=== PATIENT | female | born 1940 | race Caucasian/White ===

== ENCOUNTER 2018-08-02 17:48 | Inpatient (IN) | payer MEDICARE ==
[~2018-08-02] VITALS: Ht 167.6 cm; Wt 49.0 kg
[2018-08-02 18:36] VITALS: BP 137/63
[2018-08-02] MEDS ORDERED: MAG HYDROX/AL HYDROX/SIMETH 30 ML ORAL.SUSP PO PRN (19:30)
[2018-08-02] MEDS ORDERED: MAGNESIUM HYDROXIDE 2,400 MG/30 ML ORAL.SUSP. PO PRN (19:30)
[2018-08-02] MEDS ORDERED: METHYL SALICYLATE/MENTHOL TOPICAL OINTMENT 29GM TUBE. TP PRN (19:30)
--- NOTE | 2018-08-02 19:35 | NUR ---
Admission Note with Justification for Admission to [facility] Patient admitted to [facility] for protective oversight for emergency stabilization of acute psychiatric crisis. Pt admitted from: Hospital ER Mode of arrival: EMS Accompanied By: EMS Precipitating behaviors that initiated intake and admission: agitation, suicidal ideation, hitting self, crying. Description of failure of out patient attempts at stabilization in previous setting list behavior and medication trials: Attempt to redirect pt. Behaviors and assessment findings upon admission: Pt alert but oriented to self only. Pt does not know where she is, what year it is, why she is here, etc. Pt states her date when asked what year it is. Pt calm and cooperative with assessment. Pt pleasant, interactive, and social. Pt's skin is intact; has bruises on arms from recent lab draws. Surgical scars: lumbar, abdomen, left knee. Pt admits to having several thoughts of self-harm in the past, but denies and SI/HI at this moment. Pt stated "I don't want to hurt myself right now. I want to be here with you guys." Plan: Admit for protective oversight for adjustment and stabilization of medications, behaviors and mood. Intense treatment regimen including groups, medication adjustments, therapy, consistent regimen for ADL's, self care, and sleep hygiene. Daily monitoring by Inpatient staff, Psychiatry, and Medical Physician.
[2018-08-02 20:23] LABS: BASO % 1 % (0-3); EOS # 0.2 x10^3/uL (0.0-0.7); EOS % 2 % (0-3); HEMATOCRIT 30.8 % (36.0-47.0); HEMOGLOBIN 10.4 g/dL (12.0-15.5); LYMPH # 1.2 x10^3/uL (1.0-4.8); LYMPH % 18 % (24-48); MEAN CORPUSCULAR HEMOGLOBIN 32 pg (25-35); MEAN CORPUSCULAR HGB CONC 34 g/dL (31-37); MEAN CORPUSCULAR VOLUME 95 fL (79-100); MONO # 0.5 x10^3/uL (0.0-1.1); MONO % 7 % (0-9); NEUT # 4.8 x10^3uL (1.8-7.7); NEUT % 72 % (31-73); PLATELET COUNT 200 x10^3/uL (140-400); RED BLOOD COUNT 3.24 x10^6/uL (3.50-5.40); RED CELL DISTRIBUTION WIDTH 13.7 % (11.5-14.5); WHITE BLOOD COUNT 6.7 x10^3/uL (4.0-11.0)
[2018-08-02] MEDS ORDERED: FURO20TA3 PO (20:43)
[2018-08-02] MEDS ORDERED: QUET25TA5 PO (20:43)
[2018-08-02] MEDS ORDERED: CARV25TA2 PO (20:43)
[2018-08-02] MEDS ORDERED: MIRT15TA3 PO (20:43)
[2018-08-02] MEDS ORDERED: METF500T9 PO (20:43)
[2018-08-02] MEDS ORDERED: CLOP75TA PO (20:43)
[2018-08-02] MEDS ORDERED: ATOR40TA59 PO (20:43)
[2018-08-02] MEDS ORDERED: INSU100I13 SQ (20:43)
[2018-08-02] MEDS ORDERED: TRAZ-120 PO (20:43)
[2018-08-02] MEDS ORDERED: DONE10TA7 PO (20:43)
[2018-08-02] MEDS ORDERED: ASPI-612 PO (20:43)
[2018-08-02 20:49] LABS: ALBUMIN 3.5 g/dL (3.4-5.0); ALBUMIN/GLOBULIN RATIO 1.1 (1.0-1.7); CALCIUM 8.5 mg/dL (8.5-10.1); CREATININE 1.1 mg/dL (0.6-1.0); POTASSIUM 4.1 mmol/L (3.5-5.1); TOTAL BILIRUBIN 0.2 mg/dL (0.2-1.0); TOTAL PROTEIN 6.7 g/dL (6.4-8.2)
[2018-08-02] MEDS: INSULIN GLARGINE 300 UNITS/3 ML INSULN.PEN. SQ SCH (21:00)
[2018-08-02] MEDS ORDERED: traZODone 50 MG TABLET. PO SCH (21:00)
[2018-08-02] MEDS: MIRTAZAPINE 15 MG TABLET PO SCH (21:19)
[2018-08-02] MEDS: QUEtiapine 25 MG TABLET. PO SCH (21:19)
--- NOTE | 2018-08-02 22:39 | PDOC ---
Exam Note: Jc Note: Please also refer to the separate dictated note~for this date of service dictated separately. Discussed the patient with Nursing staff reviewed the chart.~Reviewed interim history and current functioning. Reviewed vital signs,~ Labs/ Radiology~and current medications noted below. Continue current treatment with the changes noted in the dictated addendum note Assessment: Vital Signs: Vital Signs Date Time Temp Pulse Resp B/P (MAP) Pulse Ox O2 Delivery O2 Flow Rate FiO2 08/02/18 18:36 97.5 64 20 137/63 (87) 100 Room Air Labs: Laboratory Tests Test 08/02/18 19:09 08/02/18 20:15 Glucose (Fingerstick) 197 mg/dL (70-99) H White Blood Count 6.7 x10^3/uL (4.0-11.0) Red Blood Count 3.24 x10^6/uL (3.50-5.40) L Hemoglobin 10.4 g/dL (12.0-15.5) L Hematocrit 30.8 % (36.0-47.0) L Mean Corpuscular Volume 95 fL (79-100) Mean Corpuscular Hemoglobin 32 pg (25-35) Mean Corpuscular Hemoglobin Concent 34 g/dL (31-37) Red Cell Distribution Width 13.7 % (11.5-14.5) Platelet Count 200 x10^3/uL (140-400) Neutrophils (%) (Auto) 72 % (31-73) Lymphocytes (%) (Auto) 18 % (24-48) L Monocytes (%) (Auto) 7 % (0-9) Eosinophils (%) (Auto) 2 % (0-3) Basophils (%) (Auto) 1 % (0-3) Neutrophils # (Auto) 4.8 x10^3uL (1.8-7.7) Lymphocytes # (Auto) 1.2 x10^3/uL (1.0-4.8) Monocytes # (Auto) 0.5 x10^3/uL (0.0-1.1) Eosinophils # (Auto) 0.2 x10^3/uL (0.0-0.7) Basophils # (Auto) 0.0 x10^3/uL (0.0-0.2) Sodium Level 140 mmol/L (136-145) Potassium Level 4.1 mmol/L (3.5-5.1) Chloride Level 104 mmol/L (98-107) Carbon Dioxide Level 30 mmol/L (21-32) Anion Gap 6 (6-14) Blood Urea Nitrogen 21 mg/dL (7-20) H Creatinine 1.1 mg/dL (0.6-1.0) H Estimated GFR (Cockcroft-Gault) 48.0 BUN/Creatinine Ratio 19 (6-20) Glucose Level 269 mg/dL (70-99) H Calcium Level 8.5 mg/dL (8.5-10.1) Total Bilirubin 0.2 mg/dL (0.2-1.0) Aspartate Amino Transferase (AST) 78 U/L (15-37) H Alanine Aminotransferase (ALT) 78 U/L (14-59) H Alkaline Phosphatase 104 U/L (46-116) Total Protein 6.7 g/dL (6.4-8.2) Albumin 3.5 g/dL (3.4-5.0) Albumin/Globulin Ratio 1.1 (1.0-1.7) Current Medications: Meds: Current Medications Acetaminophen (Tylenol) 650 mg PRN Q6HRS PRN PO PAIN / TEMP; Start 08/02/18 at 19:30 Multi-Ingredient Ointment (Analgesic [place]) 1 ashlyn PRN QID PRN TP MUSCLE PAIN; Start 08/02/18 at 19:30 Al Hydroxide/Mg Hydroxide (Mylanta Plus Xs) 15 ml PRN AFTMEALHC PRN PO DYSPEPSIA; Start 08/02/18 at 19:30 Magnesium Hydroxide (Milk Of Magnesia) 2,400 mg PRN QHS PRN PO CONSTIPATION; Start 08/02/18 at 19:30 Donepezil HCl (Aricept) 10 mg DAILY PO ; Start 08/03/18 at 09:00 Mirtazapine (Remeron) 15 mg QHS PO Last administered on 08/02/18at 21:19; Start 08/02/18 at 21:00 Quetiapine Fumarate (SEROquel) 25 mg TID PO Last administered on 08/02/18at 21: 19; Start 08/02/18 at 21:00 Trazodone HCl (Desyrel) 12.5 mg TID PO Last administered on 08/02/18at 21:19; Start 08/02/18 at 21:00 Clopidogrel Bisulfate (Plavix) 75 mg DAILY PO ; Start 08/03/18 at 09:00 Furosemide (Lasix) 20 mg DAILY PO ; Start 08/03/18 at 09:00 Insulin Glargine (Lantus) 5 units QHS SQ ; Start 08/02/18 at 21:00 Aspirin (Aspirin Enteric Coated) 81 mg DAILY PO ; Start 08/03/18 at 09:00 Atorvastatin Calcium (Lipitor) 40 mg DAILY PO ; Start 08/03/18 at 09:00 Carvedilol (Coreg) 12.5 mg BIDWMEALS PO ; Start 08/03/18 at 08:00 Metformin HCl (Glucophage) 500 mg BIDWMEALS PO ; Start 08/03/18 at 08:00 Active Scripts Active Reported Trazodone Hcl 50 Mg Tablet 12.5 Mg PO TID Seroquel (Quetiapine Fumarate) 25 Mg Tablet 25 Mg PO TID Metformin Hcl Er (Metformin Hcl) 500 Mg Tab.er.24h 500 Mg PO BID Furosemide 20 Mg Tablet 20 Mg PO DAILY Donepezil Hcl 10 Mg Tablet 10 Mg PO DAILY Clopidogrel (Clopidogrel Bisulfate) 75 Mg Tablet 75 Mg PO DAILY Carvedilol 25 Mg Tablet 12.5 Mg PO BIDWMEALS Atorvastatin Calcium 40 Mg Tablet 40 Mg PO DAILY Mirtazapine 15 Mg Tablet 15 Mg PO QHS Lantus Solostar (Insulin Glargine,Hum.rec.anlog) 100 Unit/1 Ml Insuln.pen 5 Units SQ QHS Aspirin Ec (Aspirin) 81 Mg Tablet. 81 Mg PO DAILY I have reviewed the current psychotropics carefully including drug interactions. Risk benefit ratio favors no change other than as noted in my dictated progress note. JAMES MONTANEZ MD Aug 02, 2018 22:39
[2018-08-03 05:56] VITALS: BP 155/83
[2018-08-03 07:13] LABS: BACTERIA,URINE MANY /HPF (0-FEW); BILIRUBIN,URINE NEG (NEG); CLARITY,URINE CLEAR; COLOR,URINE YELLOW; GLUCOSE,URINE 250 mg/dL (NEG); NITRITE,URINE NEG (NEG); RBC,URINE 0 /HPF (0-2); UROBILINOGEN,URINE 0.2 mg/dL (0.2 mg/dL)
[2018-08-03 07:14] LABS: SQUAMOUS EPITHELIAL CELL,UR FEW /LPF
[2018-08-03] MEDS: metFORMIN 500 MG TABLET PO SCH ×2 (07:39→17:51)
[2018-08-03] MEDS: QUEtiapine 25 MG TABLET. PO SCH ×3 (07:39→20:00)
[2018-08-03] MEDS: ASPIRIN ENTERIC COATED 81 MG TABLET.DR. PO SCH (07:39)
[2018-08-03] MEDS: ATORVASTATIN CALCIUM 20 MG TABLET PO SCH (07:40)
[2018-08-03] MEDS: DONEPEZIL HCL 10 MG TABLET PO SCH (07:40)
[2018-08-03] MEDS: CLOPIDOGREL BISULFATE 75 MG TABLET PO SCH (07:40)
[2018-08-03] MEDS: FUROSEMIDE 20 MG TABLET PO SCH (07:40)
[2018-08-03] MEDS: CARVEDILOL 12.5 MG TABLET PO SCH ×2 (07:40→17:52)
--- NOTE | 2018-08-03 11:00 | HP ---
ADMIT DATE: 08/02/2018 PSYCHIATRIC ADMISSION HISTORY AND EVALUATION This late entry of 08/02/2018 covers elements not covered in my initial note. SUMMARY OF PROGRESS: I met with the patient evening of 08/02/2018, about 15-20 minutes after she arrived in the unit. Discussed with the nursing staff, reviewed the chart. Previously discussed the patient with Ruth Covarrubias, merchandise coordinator and reviewed information from [facility], where she was hospitalized from home and medically stabilized, but remained confused with active suicidal ideation voiced on 08/02/2017. She was agitated, paranoid, scared that someone was after her. She was hitting herself in the head and was having splitting behavior with the staff. Behaviors were deemed unmanageable, unable to return home, potentially dangerous, had failed psychiatric interventions at the [facility], referred for inpatient psychiatric stabilization. CHIEF COMPLAINT: "I just came here. The year is 1939. No, I don't know the name of the president. Yes, I am hungry." The patient responded to specific questions by me as I met with her in her room shortly after she arrived in the unit evening of 08/02/2018. HISTORY OF PRESENT ILLNESS: The patient has a history of dementia, Alzheimer's vascular type and prior history of probable bipolar disorder with polysubstance abuse, alcohol abuse, opioid abuse in addition to diabetes mellitus, hypertension, CHF, status post TIA and CVAs. She has been increasingly agitated as above, potentially dangerous to herself, depressed, psychotic with sleep and appetite changes, referred for inpatient psychiatric stabilization. PAST PSYCHIATRIC HISTORY: As noted above. She was an inpatient at Psychiatry 03/01/2018 to 03/05/2018. PAST MEDICAL HISTORY: As noted above. Positive for diabetes mellitus, hypertension, status post CVA, alcohol, polysubstance abuse and CHF. Accu-Cheks a.c. and at bedtime. DIET: Diabetic cardiac regular diet, takes medications whole. CODE STATUS: DNR. ALLERGIES: PENICILLIN. FAMILY HISTORY: Noncontributory. She ambulates ad [place]. CURRENT PSYCHOTROPICS: Remeron 15 mg at bedtime, Aricept 10 mg a day, Seroquel 25 mg t.i.d., and trazodone 12.5 mg t.i.d. p.r.n. anxiety. SOCIAL HISTORY: Alcohol, polysubstance abuse history noted above. No physical, sexual or elder abuse history. She is not known to be a perpetrator. The patient had been living at home with her daughter and the daughter is unable to manage her any longer at home, and thus took her to and then the referral to us. MENTAL STATUS EXAMINATION: The patient was seen individually in her room, evening of 08/02/2018. She is oriented to herself, quite pleasant, hyperverbal. Insight, judgment, recent and remote memory, attention, concentration, fund of knowledge poor, consistent with her diagnosis. REACTION TO HOSPITALIZATION: The patient accepting of it. ASSETS: Supportive family. MENTAL STATUS EXAM: The patient is oriented to herself. Insight, judgment, recent and remote memory, attention, concentration, fund of knowledge poor, consistent with her diagnosis. She is quite paranoid, suspicious, hyperverbal at times. No active suicidal ideation. LABORATORY DATA: Reviewed. IMPRESSION: Major neurocognitive disorder, Alzheimer, vascular with delusion, depression, behavioral disturbance; anxiety disorder, unspecified; impulse control disorder, unspecified; history of bipolar 1 disorder, mixed with psychotic features, alcohol and polysubstance abuse by history. PLAN: Admit to geropsychiat[facility] unit at [facility]. I will see the patient daily individually from a psychiatric standpoint, medical followup with Dr. Joe. We will get past records from Psychiatry. Continue current psychotropics, observe baseline, then adjust as clinically indicated. Estimated length of stay 10-12 days. DISPOSITION PLANS: She will probably need placement to be facilitated by social service staff with the family. MAN Vicky MONTANEZ MD DR: SHAWNA/winsome JOB#: [id number] / [id number]
[2018-08-03 14:26] LABS: THYROID STIM HORMONE (TSH) 1.144 uIU/mL (0.358-3.740)
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
[2018-08-03] MEDS: ACETAMINOPHEN 325 MG TABLET PO PRN (15:18)
--- NOTE | 2018-08-03 15:58 | NUR ---
Behavior Intervention Response and Plan: BIRP Note: Behavior: Assumed Care of patient, patient located in Day Room at shift change. Patient exhibited the following behavior Calm, Disorganized, Compliant. Brief assessment on rounds of vital signs, medication needs, lab studies, and pain. Treatment plan problems . Intervention: Patient assessed and the following interventions initiated safety checks 15 Minute Checks Cognitive Assessment , Head to toe Assessment , Medications. Response: After interactions and interventions patient responded in the following manner, Calm , Disorganized ,Cooperative. Continue to assess behaviors and condition will continue to monitor throughout the shift as needed. Patient educated on ADL's, and hand hygiene. Plan: Continue to monitor Master Treatment Plan for patient's progress toward short term goals of Improved Mood, Decreased Anxiety, assisted goals to return to previous living setting vs placement. Continue to assess patient for changes in above assessment. Monitor for medication needs, pain, and safety concerns. Hourly rounding performed to ensure safe environment.
[2018-08-03 16:02] VITALS: BP 117/69
[2018-08-03 18:08] LABS: THYROXINE 4.5 ug/dL (4.5-12.0)
[2018-08-03] MEDS: MIRTAZAPINE 15 MG TABLET PO SCH (20:00)
[2018-08-03] MEDS: DOCUSATE SODIUM 100 MG CAPSULE PO SCH (20:01)
[2018-08-03] MEDS: INSULIN GLARGINE 300 UNITS/3 ML INSULN.PEN. SQ SCH (20:02)
--- NOTE | 2018-08-03 22:30 | NUR ---
Nursing note: Assumed care of pt in the day room. She was sitting at the table, confused, and having frequent verbal outbursts. She was compliant w/meds whole and no c/o pain.
--- NOTE | 2018-08-03 22:42 | PDOC ---
Exam Note: Jc Note: Please also refer to the separate dictated note~for this date of service dictated separately.~Patient seen individually. Discussed the patient with Nursing staff reviewed the chart.~Reviewed interim history and current functioning. Reviewed vital signs,~Labs/ Radiology~and current medications noted below. Continue current treatment with the changes noted in the dictated addendum note Assessment: Vital Signs: Vital Signs Date Time Temp Pulse Resp B/P (MAP) Pulse Ox O2 Delivery O2 Flow Rate FiO2 08/03/18 17:52 64 117/69 08/03/18 16:02 97.4 16 98 Room Air I&O Intake and Output 08/03/18 06:59 Intake Total 800 ml Balance 800 ml Intake Oral 800 ml # Voids 1 Labs: Laboratory Tests Test 08/03/18 05:58 08/03/18 07:12 08/03/18 11:28 08/03/18 19:34 Urine Collection Type Unknown Urine Color Yellow Urine Clarity Clear Urine pH 6.0 Urine Specific [place] 1.010 Urine Protein Neg (NEG-TRACE) Urine Glucose (UA) 250 mg/dL (NEG) Urine Ketones (Stick) Neg mg/dL (NEG) Urine Blood Trace (NEG) Urine Nitrite Neg (NEG) Urine Bilirubin Neg (NEG) Urine Urobilinogen Dipstick 0.2 mg/dL (0.2 mg/dL) Urine Leukocyte Esterase Small (NEG) Urine RBC 0 /HPF (0-2) Urine WBC 1-4 /HPF (0-4) Urine Squamous Epithelial Cells Few /LPF Urine Bacteria Many /HPF (0-FEW) Glucose (Fingerstick) 152 mg/dL (70-99) H 407 mg/dL (70-99) H 275 mg/dL (70-99) H Current Medications: Meds: Current Medications Acetaminophen (Tylenol) 650 mg PRN Q6HRS PRN PO PAIN / TEMP Last administered on 08/03/18at 15:18; Start 08/02/18 at 19:30 Multi-Ingredient Ointment (Analgesic [place]) 1 ashlyn PRN QID PRN TP MUSCLE PAIN; Start 08/02/18 at 19:30 Al Hydroxide/Mg Hydroxide (Mylanta Plus Xs) 15 ml PRN AFTMEALHC PRN PO DYSPEPSIA; Start 08/02/18 at 19:30 Magnesium Hydroxide (Milk Of Magnesia) 2,400 mg PRN QHS PRN PO CONSTIPATION; Start 08/02/18 at 19:30 Donepezil HCl (Aricept) 10 mg DAILY PO Last administered on 08/03/18 07:40; Start 08/03/18 at 09:00 Mirtazapine (Remeron) 15 mg QHS PO Last administered on 08/03/18 20:00; Start 08/02/18 at 21:00 Quetiapine Fumarate (SEROquel) 25 mg TID PO Last administered on 08/03/18 20: 00; Start 08/02/18 at 21:00 Trazodone HCl (Desyrel) 12.5 mg TID PO Last administered on 08/02/18 21:19; Start 08/02/18 at 21:00; Stop 08/03/18 at 04:54; Status DC Clopidogrel Bisulfate (Plavix) 75 mg DAILY PO Last administered on 08/03/18 07 :40; Start 08/03/18 at 09:00 Furosemide (Lasix) 20 mg DAILY PO Last administered on 08/03/18 07:40; Start 08/03/18 at 09:00 Insulin Glargine (Lantus) 5 units QHS SQ Last administered on 08/03/18 20:02; Start 08/02/18 at 21:00 Aspirin (Aspirin Enteric Coated) 81 mg DAILY PO Last administered on 08/03/18 07:39; Start 08/03/18 at 09:00 Atorvastatin Calcium (Lipitor) 40 mg DAILY PO Last administered on 08/03/18 07 :40; Start 08/03/18 at 09:00 Carvedilol (Coreg) 12.5 mg BIDWMEALS PO Last administered on 08/03/18 17:52; Start 08/03/18 at 08:00 Metformin HCl (Glucophage) 500 mg BIDWMEALS PO Last administered on 08/03/18 17:51; Start 08/03/18 at 08:00 Trazodone HCl (Desyrel) 12.5 mg PRN TID PRN PO Agitation; Start 08/03/18 at 05: 00 Docusate Sodium (Colace) 100 mg BID PO Last administered on 08/03/18 20:01; Start 08/03/18 at 21:00 Polyethylene Glycol (miraLAX) 17 gm DAILY PO ; Start 08/04/18 at 09:00 Active Scripts Active Reported Trazodone Hcl 50 Mg Tablet 12.5 Mg PO TID Seroquel (Quetiapine Fumarate) 25 Mg Tablet 25 Mg PO TID Metformin Hcl Er (Metformin Hcl) 500 Mg Tab.er.24h 500 Mg PO BID Furosemide 20 Mg Tablet 20 Mg PO DAILY Donepezil Hcl 10 Mg Tablet 10 Mg PO DAILY Clopidogrel (Clopidogrel Bisulfate) 75 Mg Tablet 75 Mg PO DAILY Carvedilol 25 Mg Tablet 12.5 Mg PO BIDWMEALS Atorvastatin Calcium 40 Mg Tablet 40 Mg PO DAILY Mirtazapine 15 Mg Tablet 15 Mg PO QHS Lantus Solostar (Insulin Glargine,Hum.rec.anlog) 100 Unit/1 Ml Insuln.pen 5 Units SQ QHS Aspirin Ec (Aspirin) 81 Mg Tablet.dr 81 Mg PO DAILY I have reviewed the current psychotropics carefully including drug interactions. Risk benefit ratio favors no change other than as noted in my dictated progress note. Diagnosis: Problems: (1) Major neurocognitive disorder (2) Dementia in Alzheimer's disease with delusions (3) Dementia in Alzheimer's disease with depression (4) Dementia of the Alzheimer's type with early onset with behavioral disturbance (5) Anxiety disorder (6) Bipolar affective, mixed, sev w/ psych (7) Alcohol abuse (8) Polysubstance abuse JAMES MONTANEZ MD Aug 03, 2018 22:42
[2018-08-03 23:07] LABS: HEMOGLOBIN A1C 6.8 % (4.8-5.6)
--- NOTE | 2018-08-04 00:25 | CONS ---
DATE OF CONSULTATION: 08/03/2018 REASON FOR CONSULTATION: Medical management. HISTORY OF PRESENT ILLNESS: The patient is a 78-year-old female patient. Apparently the patient was at the [facility], where she was admitted to Neurology in evaluation for subacute strokes noted on recent MRI and she was evaluated and was found to have subacute ischemic strokes involving the inferior right parietal and left parietal lobe with advanced dementia, borderline personality disorder, progressive behavior decline with episodes of agitation, paranoid delusion, hallucination. She has a history of suicidal ideation, homicidal ideation, progressive memory loss, reportedly has been going on for the last 10 years. Per her daughter, the patient has a long history of self-inflicted harm, manipulative behavior and possible bipolar disorder. Currently, daughter is concerned for a stepwise decline in the patient's cognitive function that she is unable to take her home and therefore, the patient was [facility] for inpatient psychiatric stabilization. PAST MEDICAL HISTORY: Significant for type 2 diabetes mellitus, hypertension, status post CVA and TIA. She has also had a history of alcohol and polysubstance abuse and congestive heart failure. PAST PSYCHIATRIC HISTORY: Significant for dementia of Alzheimer type, vascular type with prior history of probable bipolar disorder, polysubstance abuse, alcohol abuse, opioid abuse in addition and apparently has been increasingly agitated, potentially dangerous to self, depressed, psychotic with sleep and appetite changes and therefore she is here for inpatient psychiatric stabilization. Medically, the patient is known to have type 2 diabetes mellitus for which she was on Lantus insulin, hypertension, and congestive heart failure. She has CVA and TIAs with multiple subacute ischemic strokes involving inferior right parietal and left parietal lobe. She was seen at the [facility] at [facility] and apparently had a CT angio of the head and neck, showed multiple areas of mild, moderate, and severe intracranial stenosis. Echocardiogram showed severely dilated left atrium. Her hemoglobin A1c was 6.6% and fasting lipid profile was unremarkable. PAST SURGICAL HISTORY: Unobtainable. ALLERGIES: She is allergic to PENICILLIN. MEDICATIONS: She is currently on Aricept 10 mg daily, Plavix 75 mg once a day, atorvastatin calcium 40 mg at bedtime. She is on carvedilol 12.5 mg twice a day, aspirin 81 mg once a day, mirtazapine 15 mg at bedtime, trazodone 12.5 mg 3 times a day, quetiapine fumarate 25 mg 3 times a day, furosemide 20 mg daily. She is on metformin 500 mg twice a day and Lantus insulin 5 units at bedtime. REVIEW OF SYSTEMS: As per history of present illness. PHYSICAL EXAMINATION: GENERAL: On examining her, she was sitting comfortably in her chair, eating her dinner. She was pale, cachectic, but no jaundice, cyanosis, or thyromegaly. No jugular venous distension. No limb edema. VITAL SIGNS: Her heart rate was 64, blood pressure was 117/69, temperature was 97.4, respiratory rate was 16, and oxygen saturation was 98% on room air. HEAD, EYES, EARS, NOSE, and THROAT: Showed normocephalic, atraumatic. NECK: Supple. HEART: Showed normal first and second sounds. No gallop, rub or murmur. CHEST: Clear to auscultation. No crepitation or rhonchi. ABDOMEN: Distended, soft, nontender. No guarding or rigidity. No organomegaly. All hernial orifice intact. Bowel sounds normal. NEUROLOGIC: She is demented without any obvious lateralizing sign. All cranial nerves intact. She moves extremities without difficulty. She is able to ambulate with a walker; however, she is mostly chair bound. LABORATORY DATA: Her lab work showed a white cell count of 6700, hemoglobin 10, hematocrit 30, MCV 95, and platelet count 200,000. Her chemistry showed a serum sodium of 140, potassium 4.1, chloride 104, bicarbonate 30, anion gap of 6, BUN 21, creatinine 1.1, estimated GFR was 48 mL per minute. Her glucose was 269, calcium was 8.5. Her serum iron, TIBC and iron saturation are all consistent with anemia of chronic disease. Her total bilirubin and alkaline phosphatase were normal. AST, ALT slightly elevated. Her total protein was 6.7, albumin 3.5. Serum triglycerides 114, total cholesterol 118, LDL was 52, VLDL was 22, HDL cholesterol was 44 and the ratio was 2. Her TSH was normal at 1.144. Her urinalysis showed the urine was yellow, clear with a pH of 6, specific gravity of 1.010. The urine was negative for protein. There was large amount of glucose, negative for ketones, trace of blood, negative for nitrite and leukocyte esterase with 0 rbc's, 1-4 wbc's, and too many bacteria. IMPRESSION: In summary, this is a 78-year-old female patient, who was admitted as a transfer from [facility], where she was admitted to the [facility] for evaluation of subacute strokes noted on her recent MRI and apparently where she was medically stabilized, but remained confused with active suicidal ideation voiced on 08/02/2017. She was agitated, paranoid, scared that someone was after her she was hitting herself in the head and was having behaviors that are deemed unmanageable and unable to return home, potentially dangerous and had failed psychiatric intervention at the [facility] and therefore she was admitted to this facility. Medically, she is known to have type 2 diabetes mellitus and hypertension. She has a history of congestive heart failure, transient ischemic attacks and cerebrovascular accidents. Her lab work showed that she has chronic kidney disease. She has also normochromic normocytic anemia; however, overall she seemed to be medically stable. I will continue definitely with all her current medications. I will follow her lab works that are still pending at the time of this dictation and make any necessary recommendation. Thank you, Dr. Smalls for allowing me to participate in the care of this patient. LISA HERNANDEZ MD DR: MICA/winsome JOB#: [id number] / [id number]
[2018-08-04 06:04] VITALS: BP 145/76
[2018-08-04] MEDS: DOCUSATE SODIUM 100 MG CAPSULE PO SCH ×2 (08:47→19:28)
[2018-08-04] MEDS: metFORMIN 500 MG TABLET PO SCH ×2 (08:47→16:19)
[2018-08-04] MEDS: QUEtiapine 25 MG TABLET. PO SCH ×3 (08:47→19:29)
[2018-08-04] MEDS: CLOPIDOGREL BISULFATE 75 MG TABLET PO SCH (08:47)
[2018-08-04] MEDS: FUROSEMIDE 20 MG TABLET PO SCH (08:47)
[2018-08-04] MEDS: ATORVASTATIN CALCIUM 20 MG TABLET PO SCH (08:47)
[2018-08-04] MEDS: CARVEDILOL 12.5 MG TABLET PO SCH ×2 (08:47→16:19)
[2018-08-04] MEDS: DONEPEZIL HCL 10 MG TABLET PO SCH (08:47)
[2018-08-04] MEDS: ASPIRIN ENTERIC COATED 81 MG TABLET.DR. PO SCH (08:47)
[2018-08-04] MEDS: POLYETHYLENE GLYCOL 3350 17 GM PACKET. PO SCH (08:48)
[2018-08-04] MEDS: traZODone 50 MG TABLET. PO PRN ×2 (09:40→19:29)
--- NOTE | 2018-08-04 13:16 | NUR ---
Pt became paranoid in the hallway after breakfast, stating, "they are going to kill me." Pt could not be redirected or distracted and pt started to yell at staff. Pt was brought to the secure hallway for de-escalation. Pt continued to ruminate about people trying to kill her. When asked who was trying to kill her, pt stated "the guys that don't want me here." Pt was assured that she is in a safe place and that no one here is going to hurt her. When left to de-escalate, pt continued to talk to herself about being afraid someone was trying to kill her. Pt was given PRN Trazodone. Pt calmed down and went in to the day room with the other patients shortly after. Pt was in dining room for lunch when she was accidentally given a tray with vanilla cake initially. Pt became agitated and started to yelling when the cake was taken away from her. This nurse told pt that she had to finish her lunch before she could eat dessert in an attempt to distract her and allow her to eat her lunch. Addendum: 08/04/18 at 1326 by AKI ROBINS RN RN Continued... Pt calmed down and eventually forgot about the cake. Pt's DPOA and family member came to visit but when they were told about her getting upset over cake, they decided to not go in the dining room to see her. Family states that pt does not do well with change and they wanted to give her another day or two before seeing her. Family also states that if patient gets ahold of hand skein dyer, pt will quickly consume the skein dyer. Family also states that pt will sit herself on the ground and roll back onto her back quickly, intentionally hitting her head on the ground. Family states that pt will ask for a toe nail trim and when you go near her to cut her nails, she will start kicking at you.
[2018-08-04 17:23] VITALS: BP 130/65
[2018-08-04] MEDS ORDERED: DEXTROSE 50% 25 GM / 50ML DISP.SYRIN. IV PRN ×2 (18:15)
[2018-08-04] MEDS: MIRTAZAPINE 15 MG TABLET PO SCH (19:28)
[2018-08-04] MEDS: INSULIN GLARGINE 300 UNITS/3 ML INSULN.PEN. SQ SCH (19:37)
--- NOTE | 2018-08-04 21:27 | NUR ---
Nursing note: Assumed care of pt in the day room. She was calm and pleasant, cooperative w/meds. No c/o pain. Pt tries to keep all cups, containers, med cups she can get her hands on.
--- NOTE | 2018-08-04 22:37 | PDOC ---
Exam Note: Jc Note: Please also refer to the separate dictated note~for this date of service dictated separately.~Patient seen individually. Discussed the patient with Nursing staff reviewed the chart.~Reviewed interim history and current functioning. Reviewed vital signs,~Labs/ Radiology~and current medications noted below. Continue current treatment with the changes noted in the dictated addendum note Assessment: Vital Signs: Vital Signs Date Time Temp Pulse Resp B/P (MAP) Pulse Ox O2 Delivery O2 Flow Rate FiO2 08/04/18 17:23 98.2 72 20 130/65 (86) 96 08/03/18 16:02 Room Air I&O Intake and Output 08/04/18 07:00 Intake Total 1440 ml Balance 1440 ml Intake Oral 1440 ml # Voids 1 Labs: Laboratory Tests Test 08/04/18 07:22 08/04/18 11:35 08/04/18 16:59 08/04/18 19:34 Glucose (Fingerstick) 125 mg/dL (70-99) H 266 mg/dL (70-99) H 302 mg/dL (70-99) H 276 mg/dL (70-99) H Current Medications: Meds: Current Medications Acetaminophen (Tylenol) 650 mg PRN Q6HRS PRN PO PAIN / TEMP Last administered on 08/03/18at 15:18; Start 08/02/18 at 19:30 Multi-Ingredient Ointment (Analgesic [place]) 1 ashlyn PRN QID PRN TP MUSCLE PAIN; Start 08/02/18 at 19:30 Al Hydroxide/Mg Hydroxide (Mylanta Plus Xs) 15 ml PRN AFTMEALHC PRN PO DYSPEPSIA; Start 08/02/18 at 19:30 Magnesium Hydroxide (Milk Of Magnesia) 2,400 mg PRN QHS PRN PO CONSTIPATION; Start 08/02/18 at 19:30 Donepezil HCl (Aricept) 10 mg DAILY PO Last administered on 08/04/18at 08:47; Start 08/03/18 at 09:00 Mirtazapine (Remeron) 15 mg QHS PO Last administered on 08/04/18 19:28; Start 08/02/18 at 21:00 Quetiapine Fumarate (SEROquel) 25 mg TID PO Last administered on 08/04/18 19: 29; Start 08/02/18 at 21:00 Trazodone HCl (Desyrel) 12.5 mg TID PO Last administered on 08/02/18 21:19; Start 08/02/18 at 21:00; Stop 08/03/18 at 04:54; Status DC Clopidogrel Bisulfate (Plavix) 75 mg DAILY PO Last administered on 08/04/18 08 :47; Start 08/03/18 at 09:00 Furosemide (Lasix) 20 mg DAILY PO Last administered on 08/04/18 08:47; Start 08/03/18 at 09:00 Insulin Glargine (Lantus) 5 units QHS SQ Last administered on 08/04/18 19:37; Start 08/02/18 at 21:00 Aspirin (Aspirin Enteric Coated) 81 mg DAILY PO Last administered on 08/04/18 08:47; Start 08/03/18 at 09:00 Atorvastatin Calcium (Lipitor) 40 mg DAILY PO Last administered on 08/04/18 08 :47; Start 08/03/18 at 09:00 Carvedilol (Coreg) 12.5 mg BIDWMEALS PO Last administered on 08/04/18 16:19; Start 08/03/18 at 08:00 Metformin HCl (Glucophage) 500 mg BIDWMEALS PO Last administered on 08/04/18 16:19; Start 08/03/18 at 08:00 Trazodone HCl (Desyrel) 12.5 mg PRN TID PRN PO Agitation Last administered on 19:29; Start 08/03/18 at 05:00 Docusate Sodium (Colace) 100 mg BID PO Last administered on 08/04/18 19:28; Start 08/03/18 at 21:00 Polyethylene Glycol (miraLAX) 17 gm DAILY PO Last administered on 08/04/18 08: 48; Start 08/04/18 at 09:00 Olanzapine (ZyPREXA ZYDIS) 2.5 mg PRN Q2HR PRN PO PSYCHOSIS/AGITATION Last administered on 08/04/18 16:09; Start 08/04/18 at 16:00 Insulin Human Lispro (HumaLOG) 0-5 UNITS TIDWMEALS SQ ; Start 08/05/18 at 08:00 Dextrose 12.5 gm PRN Q15MIN PRN IV SEE COMMENTS; Start 08/04/18 at 18:15 Dextrose 12.5 gm PRN Q15MIN PRN IV SEE COMMENTS; Start 08/04/18 at 18:15; Status UNV Active Scripts Active Reported Trazodone Hcl 50 Mg Tablet 12.5 Mg PO TID Seroquel (Quetiapine Fumarate) 25 Mg Tablet 25 Mg PO TID Metformin Hcl Er (Metformin Hcl) 500 Mg Tab.er.24h 500 Mg PO BID Furosemide 20 Mg Tablet 20 Mg PO DAILY Donepezil Hcl 10 Mg Tablet 10 Mg PO DAILY Clopidogrel (Clopidogrel Bisulfate) 75 Mg Tablet 75 Mg PO DAILY Carvedilol 25 Mg Tablet 12.5 Mg PO BIDWMEALS Atorvastatin Calcium 40 Mg Tablet 40 Mg PO DAILY Mirtazapine 15 Mg Tablet 15 Mg PO QHS Lantus Solostar (Insulin Glargine,Hum.rec.anlog) 100 Unit/1 Ml Insuln.pen 5 Units SQ QHS Aspirin Ec (Aspirin) 81 Mg Tablet. 81 Mg PO DAILY I have reviewed the current psychotropics carefully including drug interactions. Risk benefit ratio favors no change other than as noted in my dictated progress note. Diagnosis: Problems: (1) Anxiety disorder (2) Bipolar affective, mixed, sev w/ psych (3) Polysubstance abuse (4) Dementia in Alzheimer's disease with depression (5) Dementia in Alzheimer's disease with delusions (6) Dementia of the Alzheimer's type with early onset with behavioral disturbance (7) Major neurocognitive disorder JAMES MONTANEZ MD Aug 04, 2018 22:37
--- NOTE | 2018-08-05 00:11 | NUR ---
Behavior Intervention Response and Plan: BIRP Note: Behavior: Assumed Care of patient, patient located in Day Room at shift change. Patient exhibited the following behavior Disorganized, Delusions, Cooperative. Brief assessment on rounds of vital signs, medication needs, lab studies, and pain. Treatment plan problems . Intervention: Patient assessed and the following interventions initiated safety checks 15 Minute Checks Cognitive Assessment , Head to toe Assessment , Medications. Response: After interactions and interventions patient responded in the following manner, Drowsy , Cooperative ,Sleeping. Continue to assess behaviors and condition will continue to monitor throughout the shift as needed. Patient educated on ADL's, and hand hygiene. Plan: Continue to monitor Master Treatment Plan for patient's progress toward short term goals of Decreased Agitation, Decreased Anxiety, senior care goals to return to previous living setting vs placement. Continue to assess patient for changes in above assessment. Monitor for medication needs, pain, and safety concerns. Hourly rounding performed to ensure safe environment.
[2018-08-05 06:40] VITALS: BP 147/74
[2018-08-05] MEDS: POLYETHYLENE GLYCOL 3350 17 GM PACKET. PO SCH (09:15)
[2018-08-05] MEDS: DONEPEZIL HCL 10 MG TABLET PO SCH (09:15)
[2018-08-05] MEDS: CARVEDILOL 12.5 MG TABLET PO SCH ×2 (09:16→17:35)
[2018-08-05] MEDS: DOCUSATE SODIUM 100 MG CAPSULE PO SCH ×2 (09:16→21:08)
[2018-08-05] MEDS: ASPIRIN ENTERIC COATED 81 MG TABLET.DR. PO SCH (09:16)
[2018-08-05] MEDS: FUROSEMIDE 20 MG TABLET PO SCH (09:16)
[2018-08-05] MEDS: metFORMIN 500 MG TABLET PO SCH ×2 (09:17→17:35)
[2018-08-05] MEDS: QUEtiapine 25 MG TABLET. PO SCH ×3 (09:17→21:07)
[2018-08-05] MEDS: ATORVASTATIN CALCIUM 20 MG TABLET PO SCH (09:17)
[2018-08-05] MEDS: CLOPIDOGREL BISULFATE 75 MG TABLET PO SCH (09:17)
[2018-08-05] MEDS: INSULIN LISPRO 300 UNITS/3 ML INSULN.PEN. SQ SCH ×3 (09:29→17:52)
--- NOTE | 2018-08-05 10:52 | NUR ---
Behavior Intervention Response and Plan: BIRP Note: Behavior: Assumed Care of patient, patient located in Day Room at shift change. Patient exhibited the following behavior Interactive, Calm, Disorganized. Brief assessment on rounds of vital signs, medication needs, lab studies, and pain. Treatment plan problems . Intervention: Patient assessed and the following interventions initiated safety checks 15 Minute Checks Head to toe Assessment , Cognitive Assessment , Medications. Response: After interactions and interventions patient responded in the following manner, Compliant , Cooperative ,Social. Continue to assess behaviors and condition will continue to monitor throughout the shift as needed. Patient educated on ADL's, and hand hygiene. Plan: Continue to monitor Master Treatment Plan for patient's progress toward short term goals of Improved Mood, Decreased Agitation, terminal gauger supervisor goals to return to previous living setting vs placement. Continue to assess patient for changes in above assessment. Monitor for medication needs, pain, and safety concerns. Hourly rounding performed to ensure safe environment.
--- NOTE | 2018-08-05 13:55 | NUR ---
ACTIVITY THERAPY ASSESSMENT Completed based on observation and interview. Pt. was laying in her bed but was agreeable to speak with ADMINISTRATIVE SERVICES ASSISTANT. The entire conversation jumped form topic to topic. Pt. was unable to state where she was or why she was here but did say she was comfortable and her back pain has improved as she was laying down. Pt. is talkative, difficult to keep on task and can be disruptive at times, needing repeat prompting. She fixated on things occasionally, repeats herself at times, and has made comments about being related to some of the people here. Pt. shared she loves to talk to her friends and sit in her room. She needed leisure activities listed, stating she will watch a movie if it's a nice one and she loves singing songs and dogs. She named Pio as her and said she had kids. When asked how many, Pt. stated "two, three, four, let me see, " coming back to the number "three." She repeated her full name several times throughout the assessment, "Michelle Parmar." When asked if she goes by "Pura" she said no, she liked to be called "Michelle." Pt. liked that ADMINISTRATIVE SERVICES ASSISTANT came in and talked to her. She liked when people come in and do stuff with her and talking about doing stuff with her like "alright, alright, let's go, let's go do it, hayes hayes hayes." she was appreciative to ADMINISTRATIVE SERVICES ASSISTANT and wanted to meet with her more. Initial goal aimed to increase attention span and engagement: Pt. will participate in at least three Activity Therapy groups per week.
[2018-08-05 15:49] VITALS: BP 120/68
[2018-08-05] MEDS: MIRTAZAPINE 15 MG TABLET PO SCH (21:08)
[2018-08-05] MEDS: INSULIN GLARGINE 300 UNITS/3 ML INSULN.PEN. SQ SCH (21:11)
--- NOTE | 2018-08-05 22:44 | PDOC ---
Exam Note: Jc Note: Please also refer to the separate dictated note~for this date of service dictated separately.~Patient seen individually. Discussed the patient with Nursing staff reviewed the chart.~Reviewed interim history and current functioning. Reviewed vital signs,~Labs/ Radiology~and current medications noted below. Continue current treatment with the changes noted in the dictated addendum note Assessment: Vital Signs: Vital Signs Date Time Temp Pulse Resp B/P (MAP) Pulse Ox O2 Delivery O2 Flow Rate FiO2 08/05/18 17:35 65 120/68 08/05/18 15:49 97.6 18 93 08/03/18 16:02 Room Air I&O Intake and Output 08/05/18 07:00 Intake Total 1080 ml Balance 1080 ml Intake Oral 1080 ml Labs: Laboratory Tests Test 08/05/18 07:39 08/05/18 11:54 08/05/18 16:52 08/05/18 19:39 Glucose (Fingerstick) 170 mg/dL (70-99) H 261 mg/dL (70-99) H 262 mg/dL (70-99) H 255 mg/dL (70-99) H Current Medications: Meds: Current Medications Acetaminophen (Tylenol) 650 mg PRN Q6HRS PRN PO PAIN / TEMP Last administered on 08/03/18at 15:18; Start 08/02/18 at 19:30 Multi-Ingredient Ointment (Analgesic [place]) 1 ashlyn PRN QID PRN TP MUSCLE PAIN; Start 08/02/18 at 19:30 Al Hydroxide/Mg Hydroxide (Mylanta Plus Xs) 15 ml PRN AFTMEALHC PRN PO DYSPEPSIA; Start 08/02/18 at 19:30 Magnesium Hydroxide (Milk Of Magnesia) 2,400 mg PRN QHS PRN PO CONSTIPATION; Start 08/02/18 at 19:30 Donepezil HCl (Aricept) 10 mg DAILY PO Last administered on 08/05/18at 09:15; Start 08/03/18 at 09:00 Mirtazapine (Remeron) 15 mg QHS PO Last administered on 08/05/18at 21:08; Start 08/02/18 at 21:00 Quetiapine Fumarate (SEROquel) 25 mg TID PO Last administered on 08/05/18at 21: 07; Start 08/02/18 at 21:00 Trazodone HCl (Desyrel) 12.5 mg TID PO Last administered on 08/02/18 21:19; Start 08/02/18 at 21:00; Stop 08/03/18 at 04:54; Status DC Clopidogrel Bisulfate (Plavix) 75 mg DAILY PO Last administered on 08/05/18 09 :17; Start 08/03/18 at 09:00 Furosemide (Lasix) 20 mg DAILY PO Last administered on 08/05/18 09:16; Start 08/03/18 at 09:00 Insulin Glargine (Lantus) 5 units QHS SQ Last administered on 08/05/18 21:11; Start 08/02/18 at 21:00 Aspirin (Aspirin Enteric Coated) 81 mg DAILY PO Last administered on 08/05/18 09:16; Start 08/03/18 at 09:00 Atorvastatin Calcium (Lipitor) 40 mg DAILY PO Last administered on 08/05/18 09 :17; Start 08/03/18 at 09:00 Carvedilol (Coreg) 12.5 mg BIDWMEALS PO Last administered on 08/05/18 17:35; Start 08/03/18 at 08:00 Metformin HCl (Glucophage) 500 mg BIDWMEALS PO Last administered on 08/05/18 17:35; Start 08/03/18 at 08:00 Trazodone HCl (Desyrel) 12.5 mg PRN TID PRN PO Agitation Last administered on 19:29; Start 08/03/18 at 05:00 Docusate Sodium (Colace) 100 mg BID PO Last administered on 08/05/18 21:08; Start 08/03/18 at 21:00 Polyethylene Glycol (miraLAX) 17 gm DAILY PO Last administered on 08/05/18 09: 15; Start 08/04/18 at 09:00 Olanzapine (ZyPREXA ZYDIS) 2.5 mg PRN Q2HR PRN PO PSYCHOSIS/AGITATION Last administered on 08/04/18 16:09; Start 08/04/18 at 16:00 Insulin Human Lispro (HumaLOG) 0-5 UNITS TIDWMEALS SQ Last administered on 08/05 17:52; Start 08/05/18 at 08:00 Dextrose 12.5 gm PRN Q15MIN PRN IV SEE COMMENTS; Start 08/04/18 at 18:15 Dextrose 12.5 gm PRN Q15MIN PRN IV SEE COMMENTS; Start 08/04/18 at 18:15; Status UNV Active Scripts Active Reported Trazodone Hcl 50 Mg Tablet 12.5 Mg PO TID Seroquel (Quetiapine Fumarate) 25 Mg Tablet 25 Mg PO TID Metformin Hcl Er (Metformin Hcl) 500 Mg Tab.er.24h 500 Mg PO BID Furosemide 20 Mg Tablet 20 Mg PO DAILY Donepezil Hcl 10 Mg Tablet 10 Mg PO DAILY Clopidogrel (Clopidogrel Bisulfate) 75 Mg Tablet 75 Mg PO DAILY Carvedilol 25 Mg Tablet 12.5 Mg PO BIDWMEALS Atorvastatin Calcium 40 Mg Tablet 40 Mg PO DAILY Mirtazapine 15 Mg Tablet 15 Mg PO QHS Lantus Solostar (Insulin Glargine,Hum.rec.anlog) 100 Unit/1 Ml Insuln.pen 5 Units SQ QHS Aspirin Ec (Aspirin) 81 Mg Tablet. 81 Mg PO DAILY I have reviewed the current psychotropics carefully including drug interactions. Risk benefit ratio favors no change other than as noted in my dictated progress note. Diagnosis: Problems: (1) Anxiety disorder (2) Bipolar affective, mixed, sev w/ psych (3) Polysubstance abuse (4) Dementia in Alzheimer's disease with depression (5) Dementia in Alzheimer's disease with delusions (6) Dementia of the Alzheimer's type with early onset with behavioral disturbance (7) Major neurocognitive disorder JAMES MONTANEZ MD Aug 05, 2018 22:44
[2018-08-06] MEDS: FUROSEMIDE 20 MG TABLET PO SCH (08:21)
[2018-08-06] MEDS: ASPIRIN ENTERIC COATED 81 MG TABLET.DR. PO SCH (08:21)
[2018-08-06] MEDS: DONEPEZIL HCL 10 MG TABLET PO SCH (08:21)
[2018-08-06] MEDS: INSULIN LISPRO 300 UNITS/3 ML INSULN.PEN. SQ SCH ×3 (08:21→17:22)
[2018-08-06] MEDS: DOCUSATE SODIUM 100 MG CAPSULE PO SCH ×2 (08:21→20:10)
[2018-08-06] MEDS: CARVEDILOL 12.5 MG TABLET PO SCH ×2 (08:21→17:00)
[2018-08-06] MEDS: metFORMIN 500 MG TABLET PO SCH ×2 (08:21→17:21)
[2018-08-06] MEDS: QUEtiapine 25 MG TABLET. PO SCH ×3 (08:22→20:10)
[2018-08-06] MEDS: POLYETHYLENE GLYCOL 3350 17 GM PACKET. PO SCH (08:22)
[2018-08-06] MEDS: ATORVASTATIN CALCIUM 20 MG TABLET PO SCH (08:22)
[2018-08-06] MEDS: CLOPIDOGREL BISULFATE 75 MG TABLET PO SCH (08:22)
--- NOTE | 2018-08-06 11:04 | NUR ---
Pt is cooperative with medication and assessment but attempts to katja items and will become tearful when you take them away. She was resistive in the shower.
[2018-08-06 16:21] VITALS: BP 149/78
--- NOTE | 2018-08-06 20:07 | PN ---
DATE: 08/03/2018 PSYCHIATRIC PROGRESS NOTE This late entry 08/03/2018 covers elements not covered in my initial note. SUBJECTIVE: I met with the patient in the evening. The patient remains confused, slept 6 hours previous night, anxious, restless at times, but redirectable. REVIEW OF SYSTEMS: No CV, , pulmonary, eye, ENT system symptoms on review. Reliability poor. Gait unsteady in wheelchair. MENTAL STATUS EXAM: Oriented to herself. Insight, judgment, recent and remote memory, attention, concentration, fund of knowledge poor, consistent with her diagnosis. IMPRESSION: Major neurocognitive disorder, Alzheimer, vascular with delusion, depression, behavioral disturbance; bipolar 1 disorder, mixed with psychotic features; history of alcohol, polysubstance abuse. Rest unchanged from admission. PLAN: Continue current psychotropics as mentioned in my initial note. Continue to observe baseline, then adjust as clinically indicated. MAN Vicky MONTANEZ MD DR: SHAWNA/winsome JOB#: [id number] / [id number]
[2018-08-06] MEDS: MIRTAZAPINE 15 MG TABLET PO SCH (20:10)
[2018-08-06] MEDS: INSULIN GLARGINE 300 UNITS/3 ML INSULN.PEN. SQ SCH (20:13)
--- NOTE | 2018-08-06 21:57 | PN ---
DATE: 08/04/2018 PSYCHIATRIC PROGRESS NOTE This late entry 08/04/2018 covers elements not covered in my initial note. SUBJECTIVE: I met with the patient in the evening. The patient slept 7 hours previous night. She remains somewhat withdrawn, anxious. Blood sugar was in the 400s, will defer to Dr. Joe, started on sliding scale insulin. REVIEW OF SYSTEMS: Ambulation impaired, in wheelchair. No CV, , pulmonary, eye system symptoms on review. She is seated with her head bent forward. MENTAL STATUS EXAM: Oriented to herself, otherwise confused. REVIEW OF SYSTEMS: No CV, , pulmonary, eye system symptoms on review. MENTAL STATUS EXAM: Oriented to herself as above. Speech moderate latency, often responses monosyllabic. Abstraction fair, computation impaired, language function intact, attention span short. Mood and affect withdrawn. LABORATORY DATA: Reviewed. IMPRESSION: Unchanged from initial note. PLAN: No change from initial note, but may consider adjusting her Zoloft gradually. JAMES MONTANEZ MD DR: SHAWNA/winsome JOB#: [id number] / [id number]
--- NOTE | 2018-08-06 21:59 | PN ---
DATE: 08/05/2018 PSYCHIATRIC PROGRESS NOTE This late entry 08/05/2018 covers elements not covered in my initial note. SUBJECTIVE: I met with the patient in the evening. The patient slept 7-1/4 hours previous night. She remains confused, ambulates in wheelchair. REVIEW OF SYSTEMS: No CV, , pulmonary, eye, ENT system symptoms on review. Reliability poor. MENTAL STATUS EXAM: Oriented to herself. Insight, judgment, recent and remote memory, attention, concentration, fund of knowledge poor, consistent with her diagnosis mentioned in my initial note. PLAN: No change from initial note. MAN Vicky MONTANEZ MD DR: SHAWNA/winsome JOB#: [id number] / [id number]
--- NOTE | 2018-08-06 22:55 | PDOC ---
Exam Note: Jc Note: Please also refer to the separate dictated note~for this date of service dictated separately.~Patient seen individually. Discussed the patient with Nursing staff reviewed the chart.~Reviewed interim history and current functioning. Reviewed vital signs,~Labs/ Radiology~and current medications noted below. Continue current treatment with the changes noted in the dictated addendum note Assessment: Vital Signs: Vital Signs Date Time Temp Pulse Resp B/P (MAP) Pulse Ox O2 Delivery O2 Flow Rate FiO2 08/06/18 16:21 97.4 61 19 149/78 (101) 100 08/03/18 16:02 Room Air I&O Intake and Output 08/06/18 06:59 Intake Total 920 ml Balance 920 ml Intake Oral 920 ml Labs: Laboratory Tests Test 08/06/18 07:22 08/06/18 12:01 08/06/18 16:46 08/06/18 19:28 Glucose (Fingerstick) 121 mg/dL (70-99) H 217 mg/dL (70-99) H 188 mg/dL (70-99) H 235 mg/dL (70-99) H Current Medications: Meds: Current Medications Acetaminophen (Tylenol) 650 mg PRN Q6HRS PRN PO PAIN / TEMP Last administered on 08/03/18at 15:18; Start 08/02/18 at 19:30 Multi-Ingredient Ointment (Analgesic [place]) 1 ashlyn PRN QID PRN TP MUSCLE PAIN; Start 08/02/18 at 19:30 Al Hydroxide/Mg Hydroxide (Mylanta Plus Xs) 15 ml PRN AFTMEALHC PRN PO DYSPEPSIA; Start 08/02/18 at 19:30 Magnesium Hydroxide (Milk Of Magnesia) 2,400 mg PRN QHS PRN PO CONSTIPATION; Start 08/02/18 at 19:30 Donepezil HCl (Aricept) 10 mg DAILY PO Last administered on 08/06/18at 08:21; Start 08/03/18 at 09:00 Mirtazapine (Remeron) 15 mg QHS PO Last administered on 08/06/18at 20:10; Start 08/02/18 at 21:00 Quetiapine Fumarate (SEROquel) 25 mg TID PO Last administered on 08/06/18at 20:10 ; Start 08/02/18 at 21:00 Trazodone HCl (Desyrel) 12.5 mg TID PO Last administered on 08/02/18 21:19; Start 08/02/18 at 21:00; Stop 08/03/18 at 04:54; Status DC Clopidogrel Bisulfate (Plavix) 75 mg DAILY PO Last administered on 08/06/18 08: 22; Start 08/03/18 at 09:00 Furosemide (Lasix) 20 mg DAILY PO Last administered on 08/06/18 08:21; Start at 09:00 Insulin Glargine (Lantus) 5 units QHS SQ Last administered on 08/06/18 20:13; Start 08/02/18 at 21:00 Aspirin (Aspirin Enteric Coated) 81 mg DAILY PO Last administered on 08/06/18 08:21; Start 08/03/18 at 09:00 Atorvastatin Calcium (Lipitor) 40 mg DAILY PO Last administered on 08/06/18 08: 22; Start 08/03/18 at 09:00 Carvedilol (Coreg) 12.5 mg BIDWMEALS PO Last administered on 08/05/18 17:35; Start 08/03/18 at 08:00 Metformin HCl (Glucophage) 500 mg BIDWMEALS PO Last administered on 08/06/18 17 :21; Start 08/03/18 at 08:00 Trazodone HCl (Desyrel) 12.5 mg PRN TID PRN PO Agitation Last administered on 19:29; Start 08/03/18 at 05:00 Docusate Sodium (Colace) 100 mg BID PO Last administered on 08/06/18 20:10; Start 08/03/18 at 21:00 Polyethylene Glycol (miraLAX) 17 gm DAILY PO Last administered on 08/06/18 08: 22; Start 08/04/18 at 09:00 Olanzapine (ZyPREXA ZYDIS) 2.5 mg PRN Q2HR PRN PO PSYCHOSIS/AGITATION Last administered on 08/04/18 16:09; Start 08/04/18 at 16:00 Insulin Human Lispro (HumaLOG) 0-5 UNITS TIDWMEALS SQ Last administered on 17:22; Start 08/05/18 at 08:00 Dextrose 12.5 gm PRN Q15MIN PRN IV SEE COMMENTS; Start 08/04/18 at 18:15 Dextrose 12.5 gm PRN Q15MIN PRN IV SEE COMMENTS; Start 08/04/18 at 18:15; Status UNV Vitamin D (Vitamin D3) 50,000 unit WEEKLY PO ; Start 08/13/18 at 09:00 Sertraline HCl (Zoloft) 25 mg DAILY PO ; Start 08/07/18 at 09:00 Active Scripts Active Reported Trazodone Hcl 50 Mg Tablet 12.5 Mg PO TID Seroquel (Quetiapine Fumarate) 25 Mg Tablet 25 Mg PO TID Metformin Hcl Er (Metformin Hcl) 500 Mg Tab.er.24h 500 Mg PO BID Furosemide 20 Mg Tablet 20 Mg PO DAILY Donepezil Hcl 10 Mg Tablet 10 Mg PO DAILY Clopidogrel (Clopidogrel Bisulfate) 75 Mg Tablet 75 Mg PO DAILY Carvedilol 25 Mg Tablet 12.5 Mg PO BIDWMEALS Atorvastatin Calcium 40 Mg Tablet 40 Mg PO DAILY Mirtazapine 15 Mg Tablet 15 Mg PO QHS Lantus Solostar (Insulin Glargine,Hum.rec.anlog) 100 Unit/1 Ml Insuln.pen 5 Units SQ QHS Aspirin Ec (Aspirin) 81 Mg Tablet. 81 Mg PO DAILY I have reviewed the current psychotropics carefully including drug interactions. Risk benefit ratio favors no change other than as noted in my dictated progress note. Diagnosis: Problems: (1) Anxiety disorder (2) Bipolar affective, mixed, sev w/ psych (3) Polysubstance abuse (4) Dementia in Alzheimer's disease with depression (5) Dementia in Alzheimer's disease with delusions (6) Dementia of the Alzheimer's type with early onset with behavioral disturbance (7) Major neurocognitive disorder JAMES MONTANEZ MD Aug 06, 2018 22:55
--- NOTE | 2018-08-06 23:32 | NUR ---
Nursing Note The patient was located in the day room for her assessment and medication pass. The patient was very disorganized but was cooperative during her medication pass and took her medications whole. The patient was appropriate during interactions with staff and peers. The patient is currently sleeping in her room.
[2018-08-07 06:06] VITALS: BP 114/62
[2018-08-07] MEDS: CARVEDILOL 12.5 MG TABLET PO SCH ×2 (08:00→17:10)
[2018-08-07] MEDS: INSULIN LISPRO 300 UNITS/3 ML INSULN.PEN. SQ SCH ×3 (08:00→17:11)
[2018-08-07] MEDS: DONEPEZIL HCL 10 MG TABLET PO SCH (09:46)
[2018-08-07] MEDS: metFORMIN 500 MG TABLET PO SCH ×2 (09:46→17:10)
[2018-08-07] MEDS: ASPIRIN ENTERIC COATED 81 MG TABLET.DR. PO SCH (09:46)
[2018-08-07] MEDS: DOCUSATE SODIUM 100 MG CAPSULE PO SCH ×2 (09:47→19:49)
[2018-08-07] MEDS: FUROSEMIDE 20 MG TABLET PO SCH (09:47)
[2018-08-07] MEDS: CLOPIDOGREL BISULFATE 75 MG TABLET PO SCH (09:48)
[2018-08-07] MEDS: QUEtiapine 25 MG TABLET. PO SCH ×3 (09:48→19:49)
[2018-08-07] MEDS: POLYETHYLENE GLYCOL 3350 17 GM PACKET. PO SCH (09:48)
[2018-08-07] MEDS: ATORVASTATIN CALCIUM 20 MG TABLET PO SCH (09:48)
[2018-08-07] MEDS: SERTRALINE 25 MG TABLET. PO SCH (09:55)
--- NOTE | 2018-08-07 11:05 | NUR ---
Pt is cooperative with medication and assessment but attempts to katja items and will become tearful when you take them away, tearfulness is less today. No agitation or aggression. No hallucinations or delusions.
[2018-08-07 15:46] VITALS: BP 128/56
[2018-08-07] MEDS: MIRTAZAPINE 15 MG TABLET PO SCH (19:49)
[2018-08-07] MEDS: INSULIN GLARGINE 300 UNITS/3 ML INSULN.PEN. SQ SCH (19:50)
--- NOTE | 2018-08-07 22:39 | PDOC ---
Exam Note: Jc Note: Please also refer to the separate dictated note~for this date of service dictated separately.~Patient seen individually. Discussed the patient with Nursing staff reviewed the chart.~Reviewed interim history and current functioning. Reviewed vital signs,~Labs/ Radiology~and current medications noted below. Continue current treatment with the changes noted in the dictated addendum note Assessment: Vital Signs: Vital Signs Date Time Temp Pulse Resp B/P (MAP) Pulse Ox O2 Delivery O2 Flow Rate FiO2 08/07/18 17:10 67 128/56 08/07/18 15:46 97.2 19 100 Room Air I&O Intake and Output 08/07/18 07:00 Intake Total 840 ml Balance 840 ml Intake Oral 840 ml # Voids 1 Labs: Laboratory Tests Test 08/07/18 07:25 08/07/18 11:54 08/07/18 17:00 08/07/18 19:14 Glucose (Fingerstick) 115 mg/dL (70-99) H 151 mg/dL (70-99) H 160 mg/dL (70-99) H 155 mg/dL (70-99) H Current Medications: Meds: Current Medications Acetaminophen (Tylenol) 650 mg PRN Q6HRS PRN PO PAIN / TEMP Last administered on 08/03/18at 15:18; Start 08/02/18 at 19:30 Multi-Ingredient Ointment (Analgesic [place]) 1 ashlyn PRN QID PRN TP MUSCLE PAIN; Start 08/02/18 at 19:30 Al Hydroxide/Mg Hydroxide (Mylanta Plus Xs) 15 ml PRN AFTMEALHC PRN PO DYSPEPSIA; Start 08/02/18 at 19:30 Magnesium Hydroxide (Milk Of Magnesia) 2,400 mg PRN QHS PRN PO CONSTIPATION; Start 08/02/18 at 19:30 Donepezil HCl (Aricept) 10 mg DAILY PO Last administered on 08/07/18 09:46; Start 08/03/18 at 09:00 Mirtazapine (Remeron) 15 mg QHS PO Last administered on 08/07/18at 19:49; Start 08/02/18 at 21:00 Quetiapine Fumarate (SEROquel) 25 mg TID PO Last administered on 08/07/18 19:49 ; Start 08/02/18 at 21:00 Trazodone HCl (Desyrel) 12.5 mg TID PO Last administered on 08/02/18 21:19; Start 08/02/18 at 21:00; Stop 08/03/18 at 04:54; Status DC Clopidogrel Bisulfate (Plavix) 75 mg DAILY PO Last administered on 08/07/18 09: 48; Start 08/03/18 at 09:00 Furosemide (Lasix) 20 mg DAILY PO Last administered on 08/07/18 09:47; Start at 09:00 Insulin Glargine (Lantus) 5 units QHS SQ Last administered on 08/07/18 19:50; Start 08/02/18 at 21:00 Aspirin (Aspirin Enteric Coated) 81 mg DAILY PO Last administered on 08/07/18 09:46; Start 08/03/18 at 09:00 Atorvastatin Calcium (Lipitor) 40 mg DAILY PO Last administered on 08/07/18 09: 48; Start 08/03/18 at 09:00 Carvedilol (Coreg) 12.5 mg BIDWMEALS PO Last administered on 08/07/18 17:10; Start 08/03/18 at 08:00 Metformin HCl (Glucophage) 500 mg BIDWMEALS PO Last administered on 08/07/18 17 :10; Start 08/03/18 at 08:00 Trazodone HCl (Desyrel) 12.5 mg PRN TID PRN PO Agitation Last administered on 19:29; Start 08/03/18 at 05:00 Docusate Sodium (Colace) 100 mg BID PO Last administered on 08/07/18 19:49; Start 08/03/18 at 21:00 Polyethylene Glycol (miraLAX) 17 gm DAILY PO Last administered on 08/07/18 09: 48; Start 08/04/18 at 09:00 Olanzapine (ZyPREXA ZYDIS) 2.5 mg PRN Q2HR PRN PO PSYCHOSIS/AGITATION Last administered on 08/04/18 16:09; Start 08/04/18 at 16:00 Insulin Human Lispro (HumaLOG) 0-5 UNITS TIDWMEALS SQ Last administered on 17:11; Start 08/05/18 at 08:00 Dextrose 12.5 gm PRN Q15MIN PRN IV SEE COMMENTS; Start 08/04/18 at 18:15 Dextrose 12.5 gm PRN Q15MIN PRN IV SEE COMMENTS; Start 08/04/18 at 18:15; Status UNV Vitamin D (Vitamin D3) 50,000 unit WEEKLY PO ; Start 08/13/18 at 09:00 Sertraline HCl (Zoloft) 25 mg DAILY PO Last administered on 08/07/18at 09:55; Start 08/07/18 at 09:00; Stop 08/09/18 at 11:00 Sertraline HCl (Zoloft) 50 mg DAILY PO ; Start 08/10/18 at 09:00 Active Scripts Active Reported Trazodone Hcl 50 Mg Tablet 12.5 Mg PO TID Seroquel (Quetiapine Fumarate) 25 Mg Tablet 25 Mg PO TID Metformin Hcl Er (Metformin Hcl) 500 Mg Tab.er.24h 500 Mg PO BID Furosemide 20 Mg Tablet 20 Mg PO DAILY Donepezil Hcl 10 Mg Tablet 10 Mg PO DAILY Clopidogrel (Clopidogrel Bisulfate) 75 Mg Tablet 75 Mg PO DAILY Carvedilol 25 Mg Tablet 12.5 Mg PO BIDWMEALS Atorvastatin Calcium 40 Mg Tablet 40 Mg PO DAILY Mirtazapine 15 Mg Tablet 15 Mg PO QHS Lantus Solostar (Insulin Glargine,Hum.rec.anlog) 100 Unit/1 Ml Insuln.pen 5 Units SQ QHS Aspirin Ec (Aspirin) 81 Mg Tablet.dr 81 Mg PO DAILY I have reviewed the current psychotropics carefully including drug interactions. Risk benefit ratio favors no change other than as noted in my dictated progress note. Diagnosis: Problems: (1) Anxiety disorder (2) Bipolar affective, mixed, sev w/ psych (3) Polysubstance abuse (4) Dementia in Alzheimer's disease with depression (5) Dementia in Alzheimer's disease with delusions (6) Dementia of the Alzheimer's type with early onset with behavioral disturbance (7) Major neurocognitive disorder JAMES MONTANEZ MD Aug 07, 2018 22:39
--- NOTE | 2018-08-07 22:47 | NUR ---
Behavior Intervention Response and Plan: BIRP Note: Behavior: Assumed Care of patient, patient located in Day Room at shift change. Patient exhibited the following behavior Wandering, Interactive, Able to Focus on Task. Brief assessment on rounds of vital signs, medication needs, lab studies, and pain. Treatment plan problems . Intervention: Patient assessed and the following interventions initiated safety checks 15 Minute Checks Head to toe Assessment , Cognitive Assessment , Medications. Response: After interactions and interventions patient responded in the following manner, Compliant , Cooperative ,Appropriate. Continue to assess behaviors and condition will continue to monitor throughout the shift as needed. Patient educated on ADL's, and hand hygiene. Plan: Continue to monitor Master Treatment Plan for patient's progress toward short term goals of Improved Mood, Medication Compliance, loan documents closer goals to return to previous living setting vs placement. Continue to assess patient for changes in above assessment. Monitor for medication needs, pain, and safety concerns. Hourly rounding performed to ensure safe environment.
--- NOTE | 2018-08-08 03:06 | PN ---
DATE: 08/06/2018 This late entry for 08/06/2018 covers elements not covered in my initial note. SUBJECTIVE: I met with the patient in the evening. The patient slept 6 hours previous night. She was delusional previous night, believed one of the other female patients was her mother. She has been somewhat obsessive hoarding things. Otherwise, pleasant, redirectable. REVIEW OF SYSTEMS: Ambulation impaired, in wheelchair. No CV, , pulmonary, eye, ENT system symptoms on review. Reliability poor. MENTAL STATUS EXAM: Oriented to herself. Insight, judgment, recent and remote memory, attention, concentration, fund of knowledge poor, consistent with her diagnosis mentioned in my initial note. PLAN: No change from initial note, but we will start Zoloft 25 mg a day to help with some of her obsessive thought processes, hoarding behaviors noted. MAN Vicky MONTANEZ MD DR: SHAWNA/winsome JOB#: [id number] / [id number]
[2018-08-08 05:47] VITALS: BP 143/71
[2018-08-08] MEDS: INSULIN LISPRO 300 UNITS/3 ML INSULN.PEN. SQ SCH ×3 (08:00→17:13)
[2018-08-08] MEDS: FUROSEMIDE 20 MG TABLET PO SCH (08:28)
[2018-08-08] MEDS: CLOPIDOGREL BISULFATE 75 MG TABLET PO SCH (08:28)
[2018-08-08] MEDS: ASPIRIN ENTERIC COATED 81 MG TABLET.DR. PO SCH (08:28)
[2018-08-08] MEDS: QUEtiapine 25 MG TABLET. PO SCH ×3 (08:28→19:45)
[2018-08-08] MEDS: ATORVASTATIN CALCIUM 20 MG TABLET PO SCH (08:28)
[2018-08-08] MEDS: DOCUSATE SODIUM 100 MG CAPSULE PO SCH ×2 (08:29→19:44)
[2018-08-08] MEDS: SERTRALINE 25 MG TABLET. PO SCH (08:29)
[2018-08-08] MEDS: CARVEDILOL 12.5 MG TABLET PO SCH ×2 (08:29→16:49)
[2018-08-08] MEDS: DONEPEZIL HCL 10 MG TABLET PO SCH (08:29)
[2018-08-08] MEDS: metFORMIN 500 MG TABLET PO SCH ×2 (08:29→16:49)
[2018-08-08] MEDS: POLYETHYLENE GLYCOL 3350 17 GM PACKET. PO SCH (08:30)
[2018-08-08] MEDS: ACETAMINOPHEN 325 MG TABLET PO PRN (13:18)
--- NOTE | 2018-08-08 14:35 | NUR ---
Behavior Intervention Response and Plan: BIRP Note: Behavior: Assumed Care of patient, patient located in Day Room at shift change. Patient exhibited the following behavior Wandering, Interactive, compliant. Brief assessment on rounds of vital signs, medication needs, lab studies, and pain. Treatment plan problems . Intervention: Patient assessed and the following interventions initiated safety checks 15 Minute Checks Head to toe Assessment , Cognitive Assessment , Medications. Response: After interactions and interventions patient responded in the following manner, wandering, Cooperative ,Appropriate. Continue to assess behaviors and condition will continue to monitor throughout the shift as needed. Patient educated on ADL's, and hand hygiene. Plan: Continue to monitor Master Treatment Plan for patient's progress toward short term goals of Improved Mood, Medication Compliance, half-way goals to return to previous living setting vs placement. Continue to assess patient for changes in above assessment. Monitor for medication needs, pain, and safety concerns. Hourly rounding performed to ensure safe environment.
[2018-08-08 16:44] VITALS: BP 119/50
[2018-08-08] MEDS: MIRTAZAPINE 15 MG TABLET PO SCH (19:44)
[2018-08-08] MEDS: INSULIN GLARGINE 300 UNITS/3 ML INSULN.PEN. SQ SCH (19:53)
--- NOTE | 2018-08-08 20:05 | NUR ---
PT in day room at time of medication administration and assessment. PT in wheelchair, sitting quietly. PT cooperative with medication administration including insulin and assessment. PT took her meds whole in 2 groupings. PT wanted to keep medication cup and water cup. Gas Appliance Adjuster told the PT it was trash and could not be kept; PT redirected.
--- NOTE | 2018-08-08 21:14 | PN ---
DATE: 08/07/2018 PSYCHIATRIC PROGRESS NOTE This late entry 08/07/2018 covers elements not covered in my initial note. SUBJECTIVE: I met with the patient in the evening. The patient slept 7 hours previous night. She did well at night, less tearful, better during the day on 08/07/2018. Still anxious, confused, ambulates around the unit in a walker. REVIEW OF SYSTEMS: No CV, , pulmonary, eye system symptoms on review. MENTAL STATUS EXAM: Oriented to herself. Insight, judgment, recent and remote memory, attention, concentration, fund of knowledge poor, consistent with her diagnosis mentioned in my initial note. PLAN: We will increase the Zoloft from 25 mg a day to 50 mg a day after she has been on 25 for 3 days. MAN Vicky MONTANEZ MD DR: SHAWNA/winsome JOB#: [id number] / [id number]
--- NOTE | 2018-08-08 22:30 | NUR ---
Assumed care of pt sleeping in bed respirations regular and unlabored.
--- NOTE | 2018-08-08 22:32 | PDOC ---
Exam Note: Jc Note: Please also refer to the separate dictated note~for this date of service dictated separately.~Patient seen individually. Discussed the patient with Nursing staff reviewed the chart.~Reviewed interim history and current functioning. Reviewed vital signs,~Labs/ Radiology~and current medications noted below. Continue current treatment with the changes noted in the dictated addendum note Assessment: Vital Signs: Vital Signs Date Time Temp Pulse Resp B/P (MAP) Pulse Ox O2 Delivery O2 Flow Rate FiO2 08/08/18 16:49 59 119/50 08/08/18 16:44 97.0 16 100 08/07/18 15:46 Room Air I&O Intake and Output 08/08/18 07:00 Intake Total 960 ml Balance 960 ml Intake Oral 960 ml Labs: Laboratory Tests Test 08/08/18 07:28 08/08/18 11:55 08/08/18 16:52 08/08/18 19:05 Glucose (Fingerstick) 129 mg/dL (70-99) H 209 mg/dL (70-99) H 189 mg/dL (70-99) H 214 mg/dL (70-99) H Current Medications: Meds: Current Medications Acetaminophen (Tylenol) 650 mg PRN Q6HRS PRN PO PAIN / TEMP Last administered on 08/08/18 13:18; Start 08/02/18 at 19:30 Multi-Ingredient Ointment (Analgesic [place]) 1 ashyln PRN QID PRN TP MUSCLE PAIN Last administered on 08/08/18 13:18; Start 08/02/18 at 19:30 Al Hydroxide/Mg Hydroxide (Mylanta Plus Xs) 15 ml PRN AFTMEALHC PRN PO DYSPEPSIA; Start 08/02/18 at 19:30 Magnesium Hydroxide (Milk Of Magnesia) 2,400 mg PRN QHS PRN PO CONSTIPATION; Start 08/02/18 at 19:30 Donepezil HCl (Aricept) 10 mg DAILY PO Last administered on 08/08/18 08:29; Start 08/03/18 at 09:00 Mirtazapine (Remeron) 15 mg QHS PO Last administered on 08/08/18 19:44; Start 08/02/18 at 21:00 Quetiapine Fumarate (SEROquel) 25 mg TID PO Last administered on 08/08/18 19:45 ; Start 08/02/18 at 21:00 Trazodone HCl (Desyrel) 12.5 mg TID PO Last administered on 08/02/18 21:19; Start 08/02/18 at 21:00; Stop 08/03/18 at 04:54; Status DC Clopidogrel Bisulfate (Plavix) 75 mg DAILY PO Last administered on 08/08/18 08: 28; Start 08/03/18 at 09:00 Furosemide (Lasix) 20 mg DAILY PO Last administered on 08/08/18 08:28; Start at 09:00 Insulin Glargine (Lantus) 5 units QHS SQ Last administered on 08/08/18 19:53; Start 08/02/18 at 21:00 Aspirin (Aspirin Enteric Coated) 81 mg DAILY PO Last administered on 08/08/18 08:28; Start 08/03/18 at 09:00 Atorvastatin Calcium (Lipitor) 40 mg DAILY PO Last administered on 08/08/18 08: 28; Start 08/03/18 at 09:00 Carvedilol (Coreg) 12.5 mg BIDWMEALS PO Last administered on 08/08/18 16:49; Start 08/03/18 at 08:00 Metformin HCl (Glucophage) 500 mg BIDWMEALS PO Last administered on 08/08/18 16 :49; Start 08/03/18 at 08:00 Trazodone HCl (Desyrel) 12.5 mg PRN TID PRN PO Agitation Last administered on 19:29; Start 08/03/18 at 05:00 Docusate Sodium (Colace) 100 mg BID PO Last administered on 08/08/18 19:44; Start 08/03/18 at 21:00 Polyethylene Glycol (miraLAX) 17 gm DAILY PO Last administered on 08/08/18 08: 30; Start 08/04/18 at 09:00 Olanzapine (ZyPREXA ZYDIS) 2.5 mg PRN Q2HR PRN PO PSYCHOSIS/AGITATION Last administered on 08/04/18 16:09; Start 08/04/18 at 16:00 Insulin Human Lispro (HumaLOG) 0-5 UNITS TIDWMEALS SQ Last administered on at 17:13; Start 08/05/18 at 08:00 Dextrose 12.5 gm PRN Q15MIN PRN IV SEE COMMENTS; Start 08/04/18 at 18:15 Dextrose 12.5 gm PRN Q15MIN PRN IV SEE COMMENTS; Start 08/04/18 at 18:15; Status UNV Vitamin D (Vitamin D3) 50,000 unit WEEKLY PO ; Start 08/13/18 at 09:00 Sertraline HCl (Zoloft) 25 mg DAILY PO Last administered on 08/08/18at 08:29; Start 08/07/18 at 09:00; Stop 08/09/18 at 11:00 Sertraline HCl (Zoloft) 50 mg DAILY PO ; Start 08/10/18 at 09:00 Active Scripts Active Reported Trazodone Hcl 50 Mg Tablet 12.5 Mg PO TID Seroquel (Quetiapine Fumarate) 25 Mg Tablet 25 Mg PO TID Metformin Hcl Er (Metformin Hcl) 500 Mg Tab.er.24h 500 Mg PO BID Furosemide 20 Mg Tablet 20 Mg PO DAILY Donepezil Hcl 10 Mg Tablet 10 Mg PO DAILY Clopidogrel (Clopidogrel Bisulfate) 75 Mg Tablet 75 Mg PO DAILY Carvedilol 25 Mg Tablet 12.5 Mg PO BIDWMEALS Atorvastatin Calcium 40 Mg Tablet 40 Mg PO DAILY Mirtazapine 15 Mg Tablet 15 Mg PO QHS Lantus Solostar (Insulin Glargine,Hum.rec.anlog) 100 Unit/1 Ml Insuln.pen 5 Units SQ QHS Aspirin Ec (Aspirin) 81 Mg Tablet. 81 Mg PO DAILY I have reviewed the current psychotropics carefully including drug interactions. Risk benefit ratio favors no change other than as noted in my dictated progress note. Diagnosis: Problems: (1) Anxiety disorder (2) Bipolar affective, mixed, sev w/ psych (3) Polysubstance abuse (4) Dementia in Alzheimer's disease with depression (5) Dementia in Alzheimer's disease with delusions (6) Dementia of the Alzheimer's type with early onset with behavioral disturbance (7) Major neurocognitive disorder JAMES MONTANEZ MD Aug 08, 2018 22:32
[2018-08-09 06:00] VITALS: BP 124/68
[2018-08-09] MEDS: ACETAMINOPHEN 325 MG TABLET PO PRN (06:23)
[2018-08-09 06:49] LABS: BASO % 1 % (0-3); EOS # 0.2 x10^3/uL (0.0-0.7); EOS % 4 % (0-3); HEMOGLOBIN 9.1 g/dL (12.0-15.5); LYMPH # 1.6 x10^3/uL (1.0-4.8); LYMPH % 26 % (24-48); MEAN CORPUSCULAR HEMOGLOBIN 32 pg (25-35); MEAN CORPUSCULAR HGB CONC 34 g/dL (31-37); MEAN CORPUSCULAR VOLUME 94 fL (79-100); MONO # 0.4 x10^3/uL (0.0-1.1); MONO % 7 % (0-9); NEUT # 3.7 x10^3uL (1.8-7.7); NEUT % 62 % (31-73); PLATELET COUNT 220 x10^3/uL (140-400); RED BLOOD COUNT 2.87 x10^6/uL (3.50-5.40); RED CELL DISTRIBUTION WIDTH 13.8 % (11.5-14.5); WHITE BLOOD COUNT 5.9 x10^3/uL (4.0-11.0)
[2018-08-09 06:59] LABS: ALBUMIN 2.9 g/dL (3.4-5.0); ALBUMIN/GLOBULIN RATIO 0.9 (1.0-1.7); CALCIUM 8.6 mg/dL (8.5-10.1); CREATININE 1.1 mg/dL (0.6-1.0); POTASSIUM 4.3 mmol/L (3.5-5.1); TOTAL BILIRUBIN 0.3 mg/dL (0.2-1.0); TOTAL PROTEIN 6.2 g/dL (6.4-8.2)
[2018-08-09] MEDS: INSULIN LISPRO 300 UNITS/3 ML INSULN.PEN. SQ SCH ×3 (08:00→17:00)
[2018-08-09] MEDS: CLOPIDOGREL BISULFATE 75 MG TABLET PO SCH (08:30)
[2018-08-09] MEDS: ASPIRIN ENTERIC COATED 81 MG TABLET.DR. PO SCH (08:30)
[2018-08-09] MEDS: CARVEDILOL 12.5 MG TABLET PO SCH ×2 (08:31→17:08)
[2018-08-09] MEDS: ATORVASTATIN CALCIUM 20 MG TABLET PO SCH (08:31)
[2018-08-09] MEDS: FUROSEMIDE 20 MG TABLET PO SCH (08:31)
[2018-08-09] MEDS: metFORMIN 500 MG TABLET PO SCH ×2 (08:31→17:08)
[2018-08-09] MEDS: QUEtiapine 25 MG TABLET. PO SCH ×3 (08:31→19:34)
[2018-08-09] MEDS: DOCUSATE SODIUM 100 MG CAPSULE PO SCH ×2 (08:31→19:33)
[2018-08-09] MEDS: DONEPEZIL HCL 10 MG TABLET PO SCH (08:31)
[2018-08-09] MEDS: SERTRALINE 25 MG TABLET. PO SCH (08:31)
[2018-08-09] MEDS: POLYETHYLENE GLYCOL 3350 17 GM PACKET. PO SCH (08:32)
--- NOTE | 2018-08-09 10:00 | NUR ---
WEEKLY ACTIVITY THERAPY NOTE Date of Admission: 08/02/2018 Date of AT Assessment: 08/05/2018 Goal aimed: to increase attention span and engagement Initial Goal: Pt. will participate in at least three Activity Therapy groups per week. Weekly progress towards goal: achieved Group participation level: minimal Weekly highlights: applauding during praise/baptism songs on Monday Beneficial adaptations: TBD Behaviors observed: more disruptive earlier in the week, focused on wanting shoes, talkative, difficulty sitting still, wanders, socializes with others Plan: no change to goal
--- NOTE | 2018-08-09 10:44 | NUR ---
WEEKLY NOTE: Pt is eating and sleeping well. Pt does not attend groups but is interactive with staff and peers. Pt will have her Zoloft increased to 75mg within the next 3 days. Pt will discharge home once appropriate; however, will need to make sure she is less aggressive. Pt family is applying for Medicaid.
--- NOTE | 2018-08-09 13:23 | NUR ---
Behavior Intervention Response and Plan: BIRP Note: Behavior: Assumed Care of patient, patient located in Day Room at shift change. Patient exhibited the following behavior Wandering, anxious, compliant. Brief assessment on rounds of vital signs, medication needs, lab studies, and pain. Treatment plan problems . Intervention: Patient assessed and the following interventions initiated safety checks 15 Minute Checks Head to toe Assessment , Cognitive Assessment , Medications. Response: After interactions and interventions patient responded in the following manner, wandering, Cooperative , calm. Continue to assess behaviors and condition will continue to monitor throughout the shift as needed. Patient educated on ADL's, and hand hygiene. 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 Continue to assess patient for changes in above assessment. Monitor for medication needs, pain, and safety concerns. Hourly rounding performed to ensure safe environment.
--- NOTE | 2018-08-09 16:05 | NUR ---
SW contacted pt dtr, Cleo, to discuss tx team and pt behaviors. Pt dtr is hopeful that pt is able to be less aggressive and does not have any behaviors once she returns home. Pt dtr is wanting to come see pt; however, they are down with the flu right now and do not wish to get anyone else sick. Pt dtr is concerned an upcoming appt for pt to see the Neurologist at [facility]: Dr. Barger on Monday 08/14. KISHA explained that with pt being here, we will not be able to take her to that appt, as she is inpt. KISHA can see if a neurology consult can be completed here and SW will update pt dtr. Pt will look toward discharging at the end of next week.
[2018-08-09 16:12] VITALS: BP 110/62
[2018-08-09] MEDS: MIRTAZAPINE 15 MG TABLET PO SCH (19:33)
[2018-08-09] MEDS: INSULIN GLARGINE 300 UNITS/3 ML INSULN.PEN. SQ SCH (19:37)
--- NOTE | 2018-08-09 22:40 | PDOC ---
Exam Note: Jc Note: Please also refer to the separate dictated note~for this date of service dictated separately.~Patient seen individually. Discussed the patient with Nursing staff reviewed the chart.~Reviewed interim history and current functioning. Reviewed vital signs,~Labs/ Radiology~and current medications noted below. Continue current treatment with the changes noted in the dictated addendum note Assessment: Vital Signs: Vital Signs Date Time Temp Pulse Resp B/P (MAP) Pulse Ox O2 Delivery O2 Flow Rate FiO2 08/09/18 17:08 64 110/62 08/09/18 16:12 97.3 17 98 Room Air I&O Intake and Output 08/09/18 07:00 Intake Total 840 ml Balance 840 ml Intake Oral 840 ml Labs: Laboratory Tests Test 08/09/18 06:26 08/09/18 07:47 08/09/18 11:40 08/09/18 17:02 White Blood Count 5.9 x10^3/uL (4.0-11.0) Red Blood Count 2.87 x10^6/uL (3.50-5.40) L Hemoglobin 9.1 g/dL (12.0-15.5) L Hematocrit 27.0 % (36.0-47.0) L Mean Corpuscular Volume 94 fL (79-100) Mean Corpuscular Hemoglobin 32 pg (25-35) Mean Corpuscular Hemoglobin Concent 34 g/dL (31-37) Red Cell Distribution Width 13.8 % (11.5-14.5) Platelet Count 220 x10^3/uL (140-400) Neutrophils (%) (Auto) 62 % (31-73) Lymphocytes (%) (Auto) 26 % (24-48) Monocytes (%) (Auto) 7 % (0-9) Eosinophils (%) (Auto) 4 % (0-3) H Basophils (%) (Auto) 1 % (0-3) Neutrophils # (Auto) 3.7 x10^3uL (1.8-7.7) Lymphocytes # (Auto) 1.6 x10^3/uL (1.0-4.8) Monocytes # (Auto) 0.4 x10^3/uL (0.0-1.1) Eosinophils # (Auto) 0.2 x10^3/uL (0.0-0.7) Basophils # (Auto) 0.0 x10^3/uL (0.0-0.2) Sodium Level 141 mmol/L (136-145) Potassium Level 4.3 mmol/L (3.5-5.1) Chloride Level 104 mmol/L (98-107) Carbon Dioxide Level 31 mmol/L (21-32) Anion Gap 6 (6-14) Blood Urea Nitrogen 26 mg/dL (7-20) H Creatinine 1.1 mg/dL (0.6-1.0) H Estimated GFR (Cockcroft-Gault) 48.0 BUN/Creatinine Ratio 24 (6-20) H Glucose Level 112 mg/dL (70-99) H Calcium Level 8.6 mg/dL (8.5-10.1) Total Bilirubin 0.3 mg/dL (0.2-1.0) Aspartate Amino Transferase (AST) 39 U/L (15-37) H Alanine Aminotransferase (ALT) 56 U/L (14-59) Alkaline Phosphatase 112 U/L (46-116) Total Protein 6.2 g/dL (6.4-8.2) L Albumin 2.9 g/dL (3.4-5.0) L Albumin/Globulin Ratio 0.9 (1.0-1.7) L Glucose (Fingerstick) 105 mg/dL (70-99) H 270 mg/dL (70-99) H 144 mg/dL (70-99) H Test 08/09/18 19:10 Glucose (Fingerstick) 174 mg/dL (70-99) H Current Medications: Meds: Current Medications Acetaminophen (Tylenol) 650 mg PRN Q6HRS PRN PO PAIN / TEMP Last administered on 08/09/18at 06:23; Start 08/02/18 at 19:30 Multi-Ingredient Ointment (Analgesic [place]) 1 ashlyn PRN QID PRN TP MUSCLE PAIN Last administered on 08/08/18at 13:18; Start 08/02/18 at 19:30 Al Hydroxide/Mg Hydroxide (Mylanta Plus Xs) 15 ml PRN AFTMEALHC PRN PO DYSPEPSIA; Start 08/02/18 at 19:30 Magnesium Hydroxide (Milk Of Magnesia) 2,400 mg PRN QHS PRN PO CONSTIPATION; Start 08/02/18 at 19:30 Donepezil HCl (Aricept) 10 mg DAILY PO Last administered on 08/09/18 08:31; Start 08/03/18 at 09:00 Mirtazapine (Remeron) 15 mg QHS PO Last administered on 08/09/18 19:33; Start 08/02/18 at 21:00 Quetiapine Fumarate (SEROquel) 25 mg TID PO Last administered on 08/09/18 19:34 ; Start 08/02/18 at 21:00 Trazodone HCl (Desyrel) 12.5 mg TID PO Last administered on 08/02/18 21:19; Start 08/02/18 at 21:00; Stop 08/03/18 at 04:54; Status DC Clopidogrel Bisulfate (Plavix) 75 mg DAILY PO Last administered on 08/09/18 08: 30; Start 08/03/18 at 09:00 Furosemide (Lasix) 20 mg DAILY PO Last administered on 08/09/18 08:31; Start at 09:00 Insulin Glargine (Lantus) 5 units QHS SQ Last administered on 08/09/18 19:37; Start 08/02/18 at 21:00 Aspirin (Aspirin Enteric Coated) 81 mg DAILY PO Last administered on 08/09/18 08:30; Start 08/03/18 at 09:00 Atorvastatin Calcium (Lipitor) 40 mg DAILY PO Last administered on 08/09/18 08: 31; Start 08/03/18 at 09:00 Carvedilol (Coreg) 12.5 mg BIDWMEALS PO Last administered on 08/09/18 17:08; Start 08/03/18 at 08:00 Metformin HCl (Glucophage) 500 mg BIDWMEALS PO Last administered on 08/09/18 17 :08; Start 08/03/18 at 08:00 Trazodone HCl (Desyrel) 12.5 mg PRN TID PRN PO Agitation Last administered on 19:29; Start 08/03/18 at 05:00 Docusate Sodium (Colace) 100 mg BID PO Last administered on 08/09/18 19:33; Start 08/03/18 at 21:00 Polyethylene Glycol (miraLAX) 17 gm DAILY PO Last administered on 08/09/18at 08: 32; Start 08/04/18 at 09:00 Olanzapine (ZyPREXA ZYDIS) 2.5 mg PRN Q2HR PRN PO PSYCHOSIS/AGITATION Last administered on 08/04/18at 16:09; Start 08/04/18 at 16:00 Insulin Human Lispro (HumaLOG) 0-5 UNITS TIDWMEALS SQ Last administered on at 12:49; Start 08/05/18 at 08:00 Dextrose 12.5 gm PRN Q15MIN PRN IV SEE COMMENTS; Start 08/04/18 at 18:15 Dextrose 12.5 gm PRN Q15MIN PRN IV SEE COMMENTS; Start 08/04/18 at 18:15; Status UNV Vitamin D (Vitamin D3) 50,000 unit WEEKLY PO ; Start 08/13/18 at 09:00 Sertraline HCl (Zoloft) 25 mg DAILY PO Last administered on 08/09/18at 08:31; Start 08/07/18 at 09:00; Stop 08/09/18 at 11:00; Status DC Sertraline HCl (Zoloft) 50 mg DAILY PO ; Start 08/10/18 at 09:00; Stop 08/12/18 at 11:00 Sertraline HCl (Zoloft) 75 mg DAILY PO ; Start 08/13/18 at 09:00 Tramadol HCl (Ultram) 50 mg PRN Q6HRS PRN PO PAIN; Start 08/09/18 at 19:00 Active Scripts Active Reported Trazodone Hcl 50 Mg Tablet 12.5 Mg PO TID Seroquel (Quetiapine Fumarate) 25 Mg Tablet 25 Mg PO TID Metformin Hcl Er (Metformin Hcl) 500 Mg Tab.er.24h 500 Mg PO BID Furosemide 20 Mg Tablet 20 Mg PO DAILY Donepezil Hcl 10 Mg Tablet 10 Mg PO DAILY Clopidogrel (Clopidogrel Bisulfate) 75 Mg Tablet 75 Mg PO DAILY Carvedilol 25 Mg Tablet 12.5 Mg PO BIDWMEALS Atorvastatin Calcium 40 Mg Tablet 40 Mg PO DAILY Mirtazapine 15 Mg Tablet 15 Mg PO QHS Lantus Solostar (Insulin Glargine,Hum.rec.anlog) 100 Unit/1 Ml Insuln.pen 5 Units SQ QHS Aspirin Ec (Aspirin) 81 Mg Tablet.dr 81 Mg PO DAILY I have reviewed the current psychotropics carefully including drug interactions. Risk benefit ratio favors no change other than as noted in my dictated progress note. Diagnosis: Problems: (1) Anxiety disorder (2) Bipolar affective, mixed, sev w/ psych (3) Polysubstance abuse (4) Dementia in Alzheimer's disease with depression (5) Dementia in Alzheimer's disease with delusions (6) Dementia of the Alzheimer's type with early onset with behavioral disturbance (7) Major neurocognitive disorder JAMES MONTANEZ MD Aug 09, 2018 22:40
[2018-08-10 05:35] VITALS: BP 94/55
[2018-08-10] MEDS: POLYETHYLENE GLYCOL 3350 17 GM PACKET. PO SCH (07:53)
[2018-08-10] MEDS: DONEPEZIL HCL 10 MG TABLET PO SCH (07:53)
[2018-08-10] MEDS: CLOPIDOGREL BISULFATE 75 MG TABLET PO SCH (07:53)
[2018-08-10] MEDS: DOCUSATE SODIUM 100 MG CAPSULE PO SCH ×2 (07:53→19:52)
[2018-08-10] MEDS: QUEtiapine 25 MG TABLET. PO SCH ×3 (07:53→19:52)
[2018-08-10] MEDS: FUROSEMIDE 20 MG TABLET PO SCH (07:53)
[2018-08-10] MEDS: ATORVASTATIN CALCIUM 20 MG TABLET PO SCH (07:53)
[2018-08-10] MEDS: metFORMIN 500 MG TABLET PO SCH ×2 (07:54→17:49)
[2018-08-10] MEDS: ASPIRIN ENTERIC COATED 81 MG TABLET.DR. PO SCH (07:54)
[2018-08-10] MEDS: CARVEDILOL 12.5 MG TABLET PO SCH ×2 (07:54→17:50)
[2018-08-10] MEDS: SERTRALINE 25 MG TABLET. PO SCH (07:57)
[2018-08-10] MEDS: INSULIN LISPRO 300 UNITS/3 ML INSULN.PEN. SQ SCH ×3 (07:57→17:53)
[2018-08-10 16:26] VITALS: BP 108/67
--- NOTE | 2018-08-10 18:07 | PN ---
DATE: 08/08/2018 PSYCHIATRIC PROGRESS NOTE This late entry 08/08/2018 covers elements not covered in my initial note. SUBJECTIVE: I met with the patient in the evening. The patient slept 6-1/2 hours previous night. She has been confused, wandering in her walker, redirectable. REVIEW OF SYSTEMS: No CV, , pulmonary, eye, ENT system symptoms on review. Reliability poor. The patient remains anxious, hyperverbal as I met with her individually. MENTAL STATUS EXAM: Oriented to herself. Insight, judgment, recent and remote memory, attention, concentration, fund of knowledge poor, consistent with her diagnosis mentioned in my initial note. PLAN: No change from initial note. MAN Vicky MONTANEZ MD DR: SHAWNA/winsome JOB#: [id number] / [id number]
--- NOTE | 2018-08-10 18:16 | NUR ---
Pt has been cooperative but slightly anxious at times. Pt rambles constantly, even when asked to breathe in deep and not speak. Pt insists on keeping any cups/med cups that are handed to her to take medications. Pt hoards trash, including empty tissue boxes, empty cups, used napkins, plastic cutlery, etc.
[2018-08-10] MEDS: MIRTAZAPINE 15 MG TABLET PO SCH (19:52)
[2018-08-10] MEDS: INSULIN GLARGINE 300 UNITS/3 ML INSULN.PEN. SQ SCH (19:53)
--- NOTE | 2018-08-10 21:34 | NUR ---
Nursing note: Assumed care of pt in the day room. She had just come from the shower and was tired. She was calm, pleasant, and cooperative. No c/o pain, not as talkative.
--- NOTE | 2018-08-10 22:35 | PDOC ---
Exam Note: Jc Note: Please also refer to the separate dictated note~for this date of service dictated separately.~Patient seen individually. Discussed the patient with Nursing staff reviewed the chart.~Reviewed interim history and current functioning. Reviewed vital signs,~Labs/ Radiology~and current medications noted below. Continue current treatment with the changes noted in the dictated addendum note Assessment: Vital Signs: Vital Signs Date Time Temp Pulse Resp B/P (MAP) Pulse Ox O2 Delivery O2 Flow Rate FiO2 08/10/18 17:50 69 108/67 08/10/18 16:26 97.0 18 96 08/10/18 05:35 Room Air I&O Intake and Output 08/10/18 07:00 Intake Total 840 ml Balance 840 ml Intake Oral 840 ml # Bowel Movements 1 Labs: Laboratory Tests Test 08/10/18 11:39 08/10/18 16:56 08/10/18 19:17 Glucose (Fingerstick) 235 mg/dL (70-99) H 189 mg/dL (70-99) H 266 mg/dL (70-99) H Current Medications: Meds: Current Medications Acetaminophen (Tylenol) 650 mg PRN Q6HRS PRN PO PAIN / TEMP Last administered on 08/09/18 06:23; Start 08/02/18 at 19:30 Multi-Ingredient Ointment (Analgesic [place]) 1 ashlyn PRN QID PRN TP MUSCLE PAIN Last administered on 08/08/18 13:18; Start 08/02/18 at 19:30 Al Hydroxide/Mg Hydroxide (Mylanta Plus Xs) 15 ml PRN AFTMEALHC PRN PO DYSPEPSIA; Start 08/02/18 at 19:30 Magnesium Hydroxide (Milk Of Magnesia) 2,400 mg PRN QHS PRN PO CONSTIPATION; Start 08/02/18 at 19:30 Donepezil HCl (Aricept) 10 mg DAILY PO Last administered on 08/10/18 07:53; Start 08/03/18 at 09:00 Mirtazapine (Remeron) 15 mg QHS PO Last administered on 08/10/18 19:52; Start 08/02/18 at 21:00 Quetiapine Fumarate (SEROquel) 25 mg TID PO Last administered on 08/10/18 19:52 ; Start 08/02/18 at 21:00 Trazodone HCl (Desyrel) 12.5 mg TID PO Last administered on 08/02/18 21:19; Start 08/02/18 at 21:00; Stop 08/03/18 at 04:54; Status DC Clopidogrel Bisulfate (Plavix) 75 mg DAILY PO Last administered on 08/10/18 07: 53; Start 08/03/18 at 09:00 Furosemide (Lasix) 20 mg DAILY PO Last administered on 08/10/18 07:53; Start at 09:00 Insulin Glargine (Lantus) 5 units QHS SQ Last administered on 08/10/18 19:53; Start 08/02/18 at 21:00 Aspirin (Aspirin Enteric Coated) 81 mg DAILY PO Last administered on 08/10/18 07:54; Start 08/03/18 at 09:00 Atorvastatin Calcium (Lipitor) 40 mg DAILY PO Last administered on 08/10/18 07: 53; Start 08/03/18 at 09:00 Carvedilol (Coreg) 12.5 mg BIDWMEALS PO Last administered on 08/10/18 17:50; Start 08/03/18 at 08:00 Metformin HCl (Glucophage) 500 mg BIDWMEALS PO Last administered on 08/10/18 17 :49; Start 08/03/18 at 08:00 Trazodone HCl (Desyrel) 12.5 mg PRN TID PRN PO Agitation Last administered on 19:29; Start 08/03/18 at 05:00 Docusate Sodium (Colace) 100 mg BID PO Last administered on 08/10/18 19:52; Start 08/03/18 at 21:00 Polyethylene Glycol (miraLAX) 17 gm DAILY PO Last administered on 08/10/18 07: 53; Start 08/04/18 at 09:00 Olanzapine (ZyPREXA ZYDIS) 2.5 mg PRN Q2HR PRN PO PSYCHOSIS/AGITATION Last administered on 08/04/18 16:09; Start 08/04/18 at 16:00 Insulin Human Lispro (HumaLOG) 0-5 UNITS TIDWMEALS SQ Last administered on 17:53; Start 08/05/18 at 08:00 Dextrose 12.5 gm PRN Q15MIN PRN IV SEE COMMENTS; Start 08/04/18 at 18:15 Dextrose 12.5 gm PRN Q15MIN PRN IV SEE COMMENTS; Start 08/04/18 at 18:15; Status UNV Vitamin D (Vitamin D3) 50,000 unit WEEKLY PO ; Start 08/13/18 at 09:00 Sertraline HCl (Zoloft) 25 mg DAILY PO Last administered on 08/09/18at 08:31; Start 08/07/18 at 09:00; Stop 08/09/18 at 11:00; Status DC Sertraline HCl (Zoloft) 50 mg DAILY PO Last administered on 08/10/18at 07:57; Start 08/10/18 at 09:00; Stop 08/12/18 at 11:00 Sertraline HCl (Zoloft) 75 mg DAILY PO ; Start 08/13/18 at 09:00 Tramadol HCl (Ultram) 50 mg PRN Q6HRS PRN PO PAIN; Start 08/09/18 at 19:00 Active Scripts Active Reported Trazodone Hcl 50 Mg Tablet 12.5 Mg PO TID Seroquel (Quetiapine Fumarate) 25 Mg Tablet 25 Mg PO TID Metformin Hcl Er (Metformin Hcl) 500 Mg Tab.er.24h 500 Mg PO BID Furosemide 20 Mg Tablet 20 Mg PO DAILY Donepezil Hcl 10 Mg Tablet 10 Mg PO DAILY Clopidogrel (Clopidogrel Bisulfate) 75 Mg Tablet 75 Mg PO DAILY Carvedilol 25 Mg Tablet 12.5 Mg PO BIDWMEALS Atorvastatin Calcium 40 Mg Tablet 40 Mg PO DAILY Mirtazapine 15 Mg Tablet 15 Mg PO QHS Lantus Solostar (Insulin Glargine,Hum.rec.anlog) 100 Unit/1 Ml Insuln.pen 5 Units SQ QHS Aspirin Ec (Aspirin) 81 Mg Tablet.dr 81 Mg PO DAILY I have reviewed the current psychotropics carefully including drug interactions. Risk benefit ratio favors no change other than as noted in my dictated progress note. Diagnosis: Problems: (1) Anxiety disorder (2) Bipolar affective, mixed, sev w/ psych (3) Polysubstance abuse (4) Dementia in Alzheimer's disease with depression (5) Dementia in Alzheimer's disease with delusions (6) Dementia of the Alzheimer's type with early onset with behavioral disturbance (7) Major neurocognitive disorder JAMES MONTANEZ MD Aug 10, 2018 22:35
--- NOTE | 2018-08-10 23:32 | PN ---
DATE: 08/09/2018 PSYCHIATRIC PROGRESS NOTE This late entry, 08/09, covers elements not covered in my initial note. SUBJECTIVE: I met with the patient in the evening and staffed a treatment team meeting with the entire team in the morning. The patient remains quite confused and reviewed her history at length. She was locking herself in her bathroom, holding knives in her room and holding other things, threatening that she was going to "kill you". These are the things that prompted her initial referral to and then to us. She has been whining, irritable, slept 7 hours, appetite 75%, compliant with medications, redirectable, much worse cognitively since April. REVIEW OF SYSTEMS: Ambulation impaired with walker/wheelchair. No CV, , pulmonary, eye, ENT system symptoms on review. MENTAL STATUS EXAM: Oriented to herself. Insight, judgment, recent and remote memory, attention, concentration, fund of knowledge poor, consistent with her diagnosis mentioned in my initial note. PLAN: Increase Zoloft to 75 mg a day after she has been on 50 for 3 days. Rest unchanged from initial note. MAN Vicky MONTANEZ MD DR: SHAWNA/winsome JOB#: [id number] / [id number]
[2018-08-11 06:04] VITALS: BP 92/51
[2018-08-11] MEDS: ATORVASTATIN CALCIUM 20 MG TABLET PO SCH (07:26)
[2018-08-11] MEDS: DONEPEZIL HCL 10 MG TABLET PO SCH (07:26)
[2018-08-11] MEDS: ASPIRIN ENTERIC COATED 81 MG TABLET.DR. PO SCH (07:26)
[2018-08-11] MEDS: POLYETHYLENE GLYCOL 3350 17 GM PACKET. PO SCH (07:26)
[2018-08-11] MEDS: QUEtiapine 25 MG TABLET. PO SCH ×3 (07:27→19:10)
[2018-08-11] MEDS: CLOPIDOGREL BISULFATE 75 MG TABLET PO SCH (07:27)
[2018-08-11] MEDS: metFORMIN 500 MG TABLET PO SCH ×2 (07:27→17:16)
[2018-08-11] MEDS: SERTRALINE 25 MG TABLET. PO SCH (07:27)
[2018-08-11] MEDS: FUROSEMIDE 20 MG TABLET PO SCH (07:27)
[2018-08-11] MEDS: DOCUSATE SODIUM 100 MG CAPSULE PO SCH ×2 (07:27→19:10)
[2018-08-11] MEDS: CARVEDILOL 12.5 MG TABLET PO SCH ×2 (07:29→17:17)
[2018-08-11] MEDS: INSULIN LISPRO 300 UNITS/3 ML INSULN.PEN. SQ SCH ×3 (08:00→18:08)
[2018-08-11] MEDS: ACETAMINOPHEN 325 MG TABLET PO PRN (12:34)
--- NOTE | 2018-08-11 13:32 | NUR ---
Pt is disorganized, confused, and rambles continuously. Pt has been withdrawn to room. Pt did not go to breakfast and did not want to go to lunch. However, this nurse and pt's two visitors encouraged patient to go to the dining room for the remainder of the visit. Pt stated several times that I should "kiss her ass." Pt's daughter explained that comments like are normal for her at home. Pt c/o being sick, stating she threw up in the bathroom and then cleaned it up. There was no evidence of emesis in bathroom. Pt continues to katja anything she is handed: cups, tissue boxes, plastic cutlery, etc., and gets upset when someone attempts to take any of these items away from her.
[2018-08-11 16:51] VITALS: BP 149/68
[2018-08-11] MEDS: MIRTAZAPINE 15 MG TABLET PO SCH (19:10)
[2018-08-11] MEDS: INSULIN GLARGINE 300 UNITS/3 ML INSULN.PEN. SQ SCH (20:30)
--- NOTE | 2018-08-11 20:46 | NUR ---
Nursing note: Assumed care of pt in the day room. She was anxious and talking about needing to feed her dogs. I explained her dogs were at home but she advised me it was in her room. She was taken to her room to get her HS meds and insulin. She said, "See, there is my dog". She sees it on the floor. She was compliant w/meds. Alert to self only.
[2018-08-11] MEDS: traZODone 50 MG TABLET. PO PRN (22:06)
[2018-08-12] MEDS: traMADol 50 MG TABLET PO PRN (05:35)
[2018-08-12 05:41] VITALS: BP 119/67
[2018-08-12] MEDS: INSULIN LISPRO 300 UNITS/3 ML INSULN.PEN. SQ SCH ×3 (08:00→17:00)
[2018-08-12] MEDS: CARVEDILOL 12.5 MG TABLET PO SCH ×2 (08:31→17:00)
[2018-08-12] MEDS: DONEPEZIL HCL 10 MG TABLET PO SCH (08:32)
[2018-08-12] MEDS: ASPIRIN ENTERIC COATED 81 MG TABLET.DR. PO SCH (08:32)
[2018-08-12] MEDS: metFORMIN 500 MG TABLET PO SCH ×2 (08:32→17:00)
[2018-08-12] MEDS: DOCUSATE SODIUM 100 MG CAPSULE PO SCH ×2 (08:33→19:38)
[2018-08-12] MEDS: FUROSEMIDE 40 MG TABLET PO SCH (08:34)
[2018-08-12] MEDS: CLOPIDOGREL BISULFATE 75 MG TABLET PO SCH (08:34)
[2018-08-12] MEDS: POLYETHYLENE GLYCOL 3350 17 GM PACKET. PO SCH (08:34)
[2018-08-12] MEDS: QUEtiapine 25 MG TABLET. PO SCH ×3 (08:35→19:38)
[2018-08-12] MEDS: SERTRALINE 25 MG TABLET. PO SCH (08:35)
[2018-08-12] MEDS: ATORVASTATIN CALCIUM 20 MG TABLET PO SCH (08:37)
--- NOTE | 2018-08-12 09:45 | PDOC ---
Exam Note: Jc Note: Late entry for DOS 08/11/2018. Please also refer to the separate dictated note~ for this date of service dictated separately.~Patient seen individually. Discussed the patient with Nursing staff reviewed the chart.~Reviewed interim history and current functioning. Reviewed vital signs,~Labs/ Radiology~and current medications noted below. Continue current treatment with the changes noted in the dictated addendum note Assessment: Vital Signs: VS - Last 72 Hours, by Label Date Time Temp Pulse Resp B/P (MAP) Pulse Ox O2 Delivery O2 Flow Rate FiO2 08/12/18 08:31 71 119/67 08/12/18 08:14 18 Room Air 08/12/18 05:41 98.4 71 18 119/67 (84) 100 08/12/18 05:35 100 Room Air 08/11/18 17:17 60 149/68 08/11/18 16:51 97.6 60 18 149/68 (95) 100 Room Air 08/11/18 07:29 60 92/51 08/11/18 06:04 98.3 60 18 92/51 (65) 96 08/10/18 17:50 69 108/67 08/10/18 16:26 97.0 69 18 108/67 (81) 96 08/10/18 07:54 67 94/55 08/10/18 05:35 98.6 67 16 94/55 (68) 99 Room Air 08/09/18 17:08 64 110/62 08/09/18 16:12 97.3 64 17 110/62 (78) 98 Room Air Vital Signs Date Time Temp Pulse Resp B/P (MAP) Pulse Ox O2 Delivery O2 Flow Rate FiO2 08/12/18 08:31 71 119/67 08/12/18 08:14 18 Room Air 08/12/18 05:41 98.4 100 I&O Intake and Output 08/12/18 06:59 Intake Total 600 ml Balance 600 ml Intake Oral 600 ml # Voids 1 # Bowel Movements 1 Labs: Laboratory Tests Test 08/11/18 11:43 08/11/18 17:18 08/11/18 19:57 08/12/18 07:18 Glucose (Fingerstick) 116 mg/dL (70-99) H 157 mg/dL (70-99) H 193 mg/dL (70-99) H 81 mg/dL (70-99) Current Medications: Meds: Current Medications Acetaminophen (Tylenol) 650 mg PRN Q6HRS PRN PO PAIN / TEMP Last administered on 08/11/18 12:34; Start 08/02/18 at 19:30 Multi-Ingredient Ointment (Analgesic [place]) 1 ashlyn PRN QID PRN TP MUSCLE PAIN Last administered on 08/08/18 13:18; Start 08/02/18 at 19:30 Al Hydroxide/Mg Hydroxide (Mylanta Plus Xs) 15 ml PRN AFTMEALHC PRN PO DYSPEPSIA; Start 08/02/18 at 19:30 Magnesium Hydroxide (Milk Of Magnesia) 2,400 mg PRN QHS PRN PO CONSTIPATION; Start 08/02/18 at 19:30 Donepezil HCl (Aricept) 10 mg DAILY PO Last administered on 08/12/18 08:32; Start 08/03/18 at 09:00 Mirtazapine (Remeron) 15 mg QHS PO Last administered on 08/11/18 19:10; Start 08/02/18 at 21:00 Quetiapine Fumarate (SEROquel) 25 mg TID PO Last administered on 08/12/18 08:35 ; Start 08/02/18 at 21:00 Trazodone HCl (Desyrel) 12.5 mg TID PO Last administered on 08/02/18 21:19; Start 08/02/18 at 21:00; Stop 08/03/18 at 04:54; Status DC Clopidogrel Bisulfate (Plavix) 75 mg DAILY PO Last administered on 08/12/18 08: 34; Start 08/03/18 at 09:00 Furosemide (Lasix) 20 mg DAILY PO Last administered on 08/11/18 07:27; Start at 09:00; Stop 08/11/18 at 16:02; Status DC Insulin Glargine (Lantus) 5 units QHS SQ Last administered on 08/11/18 20:30; Start 08/02/18 at 21:00 Aspirin (Aspirin Enteric Coated) 81 mg DAILY PO Last administered on 08/12/18 08:32; Start 08/03/18 at 09:00 Atorvastatin Calcium (Lipitor) 40 mg DAILY PO Last administered on 08/12/18 08: 37; Start 08/03/18 at 09:00 Carvedilol (Coreg) 12.5 mg BIDWMEALS PO Last administered on 08/12/18 08:31; Start 08/03/18 at 08:00 Metformin HCl (Glucophage) 500 mg BIDWMEALS PO Last administered on 08/12/18 08 :32; Start 08/03/18 at 08:00 Trazodone HCl (Desyrel) 12.5 mg PRN TID PRN PO Agitation Last administered on 22:06; Start 08/03/18 at 05:00 Docusate Sodium (Colace) 100 mg BID PO Last administered on 08/12/18 08:33; Start 08/03/18 at 21:00 Polyethylene Glycol (miraLAX) 17 gm DAILY PO Last administered on 08/12/18 08: 34; Start 08/04/18 at 09:00 Olanzapine (ZyPREXA ZYDIS) 2.5 mg PRN Q2HR PRN PO PSYCHOSIS/AGITATION Last administered on 08/11/18 22:06; Start 08/04/18 at 16:00 Insulin Human Lispro (HumaLOG) 0-5 UNITS TIDWMEALS SQ Last administered on 18:08; Start 08/05/18 at 08:00 Dextrose 12.5 gm PRN Q15MIN PRN IV SEE COMMENTS; Start 08/04/18 at 18:15 Dextrose 12.5 gm PRN Q15MIN PRN IV SEE COMMENTS; Start 08/04/18 at 18:15; Status UNV Vitamin D (Vitamin D3) 50,000 unit WEEKLY PO ; Start 08/13/18 at 09:00 Sertraline HCl (Zoloft) 25 mg DAILY PO Last administered on 08/09/18 08:31; Start 08/07/18 at 09:00; Stop 08/09/18 at 11:00; Status DC Sertraline HCl (Zoloft) 50 mg DAILY PO Last administered on 08/12/18 08:35; Start 08/10/18 at 09:00; Stop 08/12/18 at 11:00 Sertraline HCl (Zoloft) 75 mg DAILY PO ; Start 08/13/18 at 09:00 Tramadol HCl (Ultram) 50 mg PRN Q6HRS PRN PO PAIN Last administered on at 05:35; Start 08/09/18 at 19:00 Furosemide (Lasix) 40 mg DAILY PO Last administered on 08/12/18at 08:34; Start at 09:00 Active Scripts Active Reported Trazodone Hcl 50 Mg Tablet 12.5 Mg PO TID Seroquel (Quetiapine Fumarate) 25 Mg Tablet 25 Mg PO TID Metformin Hcl Er (Metformin Hcl) 500 Mg Tab.er.24h 500 Mg PO BID Furosemide 20 Mg Tablet 20 Mg PO DAILY Donepezil Hcl 10 Mg Tablet 10 Mg PO DAILY Clopidogrel (Clopidogrel Bisulfate) 75 Mg Tablet 75 Mg PO DAILY Carvedilol 25 Mg Tablet 12.5 Mg PO BIDWMEALS Atorvastatin Calcium 40 Mg Tablet 40 Mg PO DAILY Mirtazapine 15 Mg Tablet 15 Mg PO QHS Lantus Solostar (Insulin Glargine,Hum.rec.anlog) 100 Unit/1 Ml Insuln.pen 5 Units SQ QHS Aspirin Ec (Aspirin) 81 Mg Tablet.dr 81 Mg PO DAILY I have reviewed the current psychotropics carefully including drug interactions. Risk benefit ratio favors no change other than as noted in my dictated progress note. Diagnosis: Problems: (1) Anxiety disorder (2) Bipolar affective, mixed, sev w/ psych (3) Polysubstance abuse (4) Dementia in Alzheimer's disease with depression (5) Dementia in Alzheimer's disease with delusions (6) Dementia of the Alzheimer's type with early onset with behavioral disturbance (7) Major neurocognitive disorder JAMES MONTANEZ MD Aug 12, 2018 09:45
--- NOTE | 2018-08-12 09:57 | PN ---
DATE: 08/10/2018 PSYCHIATRIC PROGRESS NOTE This late entry 08/10/2018 covers elements not covered in my initial note. SUBJECTIVE: I met with the patient in the evening. The patient slept 6-3/4 hours previous night. She remains confused, hyperverbal, more redirectable. REVIEW OF SYSTEMS: No CV, , pulmonary, eye, ENT system symptoms on review. Reliability poor. MENTAL STATUS EXAM: Oriented to herself. Insight, judgment, recent and remote memory, attention, concentration, fund of knowledge poor, consistent with her diagnosis mentioned in my initial note. PLAN: No change from initial note. MAN Vicky MONTANEZ MD DR: SHAWNA/winsome JOB#: [id number] / [id number]
--- NOTE | 2018-08-12 11:43 | NUR ---
Assumed care of pt @ approx 0700. Pt pleasant and cooperative. Compliant w/meds and assessment. Took her meds whole w/water without difficulty. Denies pain. No s/s of hallucinations, delusions, or paranoia. Denies SI/HI. Currently sitting in the Day Room with other pts, listening to [employer] music quietly. No needs voiced @ this time. Will continue to monitor and assist pt in working towards her treatment and D/C goals.
[2018-08-12 16:40] VITALS: BP 115/66
[2018-08-12] MEDS: MIRTAZAPINE 15 MG TABLET PO SCH (19:39)
[2018-08-12] MEDS: INSULIN GLARGINE 300 UNITS/3 ML INSULN.PEN. SQ SCH (19:40)
--- NOTE | 2018-08-12 22:52 | PDOC ---
Exam Note: Jc Note: Please also refer to the separate dictated note~for this date of service dictated separately.~Patient seen individually. Discussed the patient with Nursing staff reviewed the chart.~Reviewed interim history and current functioning. Reviewed vital signs,~Labs/ Radiology~and current medications noted below. Continue current treatment with the changes noted in the dictated addendum note Assessment: Vital Signs: Vital Signs Date Time Temp Pulse Resp B/P (MAP) Pulse Ox O2 Delivery O2 Flow Rate FiO2 08/12/18 17:00 59 115/66 08/12/18 16:40 97.9 18 97 Room Air I&O Intake and Output 08/12/18 07:00 Intake Total 600 ml Balance 600 ml Intake Oral 600 ml # Voids 1 # Bowel Movements 1 Labs: Laboratory Tests Test 08/12/18 07:18 08/12/18 11:47 08/12/18 16:55 08/12/18 19:07 Glucose (Fingerstick) 81 mg/dL (70-99) 191 mg/dL (70-99) H 113 mg/dL (70-99) H 136 mg/dL (70-99) H Current Medications: Meds: Current Medications Acetaminophen (Tylenol) 650 mg PRN Q6HRS PRN PO PAIN / TEMP Last administered on 08/11/18 12:34; Start 08/02/18 at 19:30 Multi-Ingredient Ointment (Analgesic [place]) 1 ashlyn PRN QID PRN TP MUSCLE PAIN Last administered on 08/08/18 13:18; Start 08/02/18 at 19:30 Al Hydroxide/Mg Hydroxide (Mylanta Plus Xs) 15 ml PRN AFTMEALHC PRN PO DYSPEPSIA; Start 08/02/18 at 19:30 Magnesium Hydroxide (Milk Of Magnesia) 2,400 mg PRN QHS PRN PO CONSTIPATION; Start 08/02/18 at 19:30 Donepezil HCl (Aricept) 10 mg DAILY PO Last administered on 08/12/18 08:32; Start 08/03/18 at 09:00 Mirtazapine (Remeron) 15 mg QHS PO Last administered on 08/12/18 19:39; Start 08/02/18 at 21:00 Quetiapine Fumarate (SEROquel) 25 mg TID PO Last administered on 08/12/18 19:38 ; Start 08/02/18 at 21:00 Trazodone HCl (Desyrel) 12.5 mg TID PO Last administered on 08/02/18 21:19; Start 08/02/18 at 21:00; Stop 08/03/18 at 04:54; Status DC Clopidogrel Bisulfate (Plavix) 75 mg DAILY PO Last administered on 08/12/18 08: 34; Start 08/03/18 at 09:00 Furosemide (Lasix) 20 mg DAILY PO Last administered on 08/11/18 07:27; Start at 09:00; Stop 08/11/18 at 16:02; Status DC Insulin Glargine (Lantus) 5 units QHS SQ Last administered on 08/12/18 19:40; Start 08/02/18 at 21:00 Aspirin (Aspirin Enteric Coated) 81 mg DAILY PO Last administered on 08/12/18 08:32; Start 08/03/18 at 09:00 Atorvastatin Calcium (Lipitor) 40 mg DAILY PO Last administered on 08/12/18 08: 37; Start 08/03/18 at 09:00 Carvedilol (Coreg) 12.5 mg BIDWMEALS PO Last administered on 08/12/18 08:31; Start 08/03/18 at 08:00 Metformin HCl (Glucophage) 500 mg BIDWMEALS PO Last administered on 08/12/18 17 :00; Start 08/03/18 at 08:00 Trazodone HCl (Desyrel) 12.5 mg PRN TID PRN PO Agitation Last administered on 22:06; Start 08/03/18 at 05:00 Docusate Sodium (Colace) 100 mg BID PO Last administered on 08/12/18 19:38; Start 08/03/18 at 21:00 Polyethylene Glycol (miraLAX) 17 gm DAILY PO Last administered on 08/12/18 08: 34; Start 08/04/18 at 09:00 Olanzapine (ZyPREXA ZYDIS) 2.5 mg PRN Q2HR PRN PO PSYCHOSIS/AGITATION Last administered on 08/11/18 22:06; Start 08/04/18 at 16:00 Insulin Human Lispro (HumaLOG) 0-5 UNITS TIDWMEALS SQ Last administered on at 12:00; Start 08/05/18 at 08:00 Dextrose 12.5 gm PRN Q15MIN PRN IV SEE COMMENTS; Start 08/04/18 at 18:15 Dextrose 12.5 gm PRN Q15MIN PRN IV SEE COMMENTS; Start 08/04/18 at 18:15; Status UNV Vitamin D (Vitamin D3) 50,000 unit WEEKLY PO ; Start 08/13/18 at 09:00 Sertraline HCl (Zoloft) 25 mg DAILY PO Last administered on 08/09/18at 08:31; Start 08/07/18 at 09:00; Stop 08/09/18 at 11:00; Status DC Sertraline HCl (Zoloft) 50 mg DAILY PO Last administered on 08/12/18at 08:35; Start 08/10/18 at 09:00; Stop 08/12/18 at 11:00; Status DC Sertraline HCl (Zoloft) 75 mg DAILY PO ; Start 08/13/18 at 09:00 Tramadol HCl (Ultram) 50 mg PRN Q6HRS PRN PO PAIN Last administered on at 05:35; Start 08/09/18 at 19:00 Furosemide (Lasix) 40 mg DAILY PO Last administered on 08/12/18at 08:34; Start at 09:00 Active Scripts Active Reported Trazodone Hcl 50 Mg Tablet 12.5 Mg PO TID Seroquel (Quetiapine Fumarate) 25 Mg Tablet 25 Mg PO TID Metformin Hcl Er (Metformin Hcl) 500 Mg Tab.er.24h 500 Mg PO BID Furosemide 20 Mg Tablet 20 Mg PO DAILY Donepezil Hcl 10 Mg Tablet 10 Mg PO DAILY Clopidogrel (Clopidogrel Bisulfate) 75 Mg Tablet 75 Mg PO DAILY Carvedilol 25 Mg Tablet 12.5 Mg PO BIDWMEALS Atorvastatin Calcium 40 Mg Tablet 40 Mg PO DAILY Mirtazapine 15 Mg Tablet 15 Mg PO QHS Lantus Solostar (Insulin Glargine,Hum.rec.anlog) 100 Unit/1 Ml Insuln.pen 5 Units SQ QHS Aspirin Ec (Aspirin) 81 Mg Tablet. 81 Mg PO DAILY I have reviewed the current psychotropics carefully including drug interactions. Risk benefit ratio favors no change other than as noted in my dictated progress note. Diagnosis: Problems: (1) Anxiety disorder (2) Bipolar affective, mixed, sev w/ psych (3) Polysubstance abuse (4) Dementia in Alzheimer's disease with depression (5) Dementia in Alzheimer's disease with delusions (6) Dementia of the Alzheimer's type with early onset with behavioral disturbance (7) Major neurocognitive disorder JAMES MONTANEZ MD Aug 12, 2018 22:52
--- NOTE | 2018-08-13 00:35 | NUR ---
Nursing Note Pt confused wanders her room, without her walker. Asks for more quilts even though she has several on her bed already.
[2018-08-13 05:34] VITALS: BP 107/63
[2018-08-13] MEDS: INSULIN LISPRO 300 UNITS/3 ML INSULN.PEN. SQ SCH ×3 (08:00→17:24)
[2018-08-13] MEDS: DOCUSATE SODIUM 100 MG CAPSULE PO SCH ×2 (08:22→19:23)
[2018-08-13] MEDS: ASPIRIN ENTERIC COATED 81 MG TABLET.DR. PO SCH (08:22)
[2018-08-13] MEDS: CLOPIDOGREL BISULFATE 75 MG TABLET PO SCH (08:22)
[2018-08-13] MEDS: ATORVASTATIN CALCIUM 20 MG TABLET PO SCH (08:22)
[2018-08-13] MEDS: DONEPEZIL HCL 10 MG TABLET PO SCH (08:23)
[2018-08-13] MEDS: CARVEDILOL 12.5 MG TABLET PO SCH ×2 (08:23→17:23)
[2018-08-13] MEDS: metFORMIN 500 MG TABLET PO SCH ×2 (08:23→17:23)
[2018-08-13] MEDS: QUEtiapine 25 MG TABLET. PO SCH ×3 (08:24→19:23)
[2018-08-13] MEDS: FUROSEMIDE 40 MG TABLET PO SCH (08:24)
[2018-08-13] MEDS: SERTRALINE 25 MG TABLET. PO SCH (08:25)
[2018-08-13] MEDS: CHOLECALCIFEROL (VITAMIN D3) 50,000 UNIT CAPSULE PO SCH (08:25)
[2018-08-13] MEDS: POLYETHYLENE GLYCOL 3350 17 GM PACKET. PO SCH (08:26)
--- NOTE | 2018-08-13 12:54 | NUR ---
Behavior Intervention Response and Plan: BIRP Note: Behavior: Assumed Care of patient, patient located in Day Room at shift change. Patient exhibited the following behavior Interactive, Calm, Social. Brief assessment on rounds of vital signs, medication needs, lab studies, and pain. Intervention: Patient assessed and the following interventions initiated safety checks 15 Minute Checks Cognitive Assessment , Head to toe Assessment , Medications. Response: After interactions and interventions patient responded in the following manner, Calm , Compliant ,Appropriate. Continue to assess behaviors and condition will continue to monitor throughout the shift as needed. Patient educated on ADL's, and hand hygiene. Plan: Continue to monitor Master Treatment Plan for patient's progress toward short term goals of Decreased Agitation, Decreased Anxiety, alf goals to return to previous living setting vs placement. Continue to assess patient for changes in above assessment. Monitor for medication needs, pain, and safety concerns. Hourly rounding performed to ensure safe environment.
[2018-08-13 16:19] VITALS: BP 118/68
[2018-08-13] MEDS: MIRTAZAPINE 15 MG TABLET PO SCH (19:23)
[2018-08-13] MEDS: INSULIN GLARGINE 300 UNITS/3 ML INSULN.PEN. SQ SCH (19:27)
--- NOTE | 2018-08-13 22:40 | PDOC ---
Exam Note: Jc Note: Please also refer to the separate dictated note~for this date of service dictated separately.~Patient seen individually. Discussed the patient with Nursing staff reviewed the chart.~Reviewed interim history and current functioning. Reviewed vital signs,~Labs/ Radiology~and current medications noted below. Continue current treatment with the changes noted in the dictated addendum note Assessment: Vital Signs: Vital Signs Date Time Temp Pulse Resp B/P (MAP) Pulse Ox O2 Delivery O2 Flow Rate FiO2 08/13/18 17:23 59 118/68 08/13/18 16:19 97.5 18 100 08/12/18 16:40 Room Air I&O Intake and Output 08/13/18 06:59 Intake Total 1080 ml Balance 1080 ml Intake Oral 1080 ml # Voids 1 Labs: Laboratory Tests Test 08/13/18 07:24 08/13/18 11:07 08/13/18 16:30 08/13/18 19:09 Glucose (Fingerstick) 133 mg/dL (70-99) H 185 mg/dL (70-99) H 224 mg/dL (70-99) H 212 mg/dL (70-99) H Current Medications: Meds: Current Medications Acetaminophen (Tylenol) 650 mg PRN Q6HRS PRN PO PAIN / TEMP Last administered on 08/11/18at 12:34; Start 08/02/18 at 19:30 Multi-Ingredient Ointment (Analgesic [place]) 1 ashlyn PRN QID PRN TP MUSCLE PAIN Last administered on 08/08/18at 13:18; Start 08/02/18 at 19:30 Al Hydroxide/Mg Hydroxide (Mylanta Plus Xs) 15 ml PRN AFTMEALHC PRN PO DYSPEPSIA; Start 08/02/18 at 19:30 Magnesium Hydroxide (Milk Of Magnesia) 2,400 mg PRN QHS PRN PO CONSTIPATION; Start 08/02/18 at 19:30 Donepezil HCl (Aricept) 10 mg DAILY PO Last administered on 08/13/18at 08:23; Start 08/03/18 at 09:00 Mirtazapine (Remeron) 15 mg QHS PO Last administered on 08/13/18at 19:23; Start 08/02/18 at 21:00 Quetiapine Fumarate (SEROquel) 25 mg TID PO Last administered on 08/13/18 19:23 ; Start 08/02/18 at 21:00 Trazodone HCl (Desyrel) 12.5 mg TID PO Last administered on 08/02/18 21:19; Start 08/02/18 at 21:00; Stop 08/03/18 at 04:54; Status DC Clopidogrel Bisulfate (Plavix) 75 mg DAILY PO Last administered on 08/13/18 08: 22; Start 08/03/18 at 09:00 Furosemide (Lasix) 20 mg DAILY PO Last administered on 08/11/18 07:27; Start at 09:00; Stop 08/11/18 at 16:02; Status DC Insulin Glargine (Lantus) 5 units QHS SQ Last administered on 08/13/18 19:27; Start 08/02/18 at 21:00 Aspirin (Aspirin Enteric Coated) 81 mg DAILY PO Last administered on 08/13/18 08:22; Start 08/03/18 at 09:00 Atorvastatin Calcium (Lipitor) 40 mg DAILY PO Last administered on 08/13/18 08: 22; Start 08/03/18 at 09:00 Carvedilol (Coreg) 12.5 mg BIDWMEALS PO Last administered on 08/13/18 17:23; Start 08/03/18 at 08:00 Metformin HCl (Glucophage) 500 mg BIDWMEALS PO Last administered on 08/13/18 17 :23; Start 08/03/18 at 08:00 Trazodone HCl (Desyrel) 12.5 mg PRN TID PRN PO Agitation Last administered on 22:06; Start 08/03/18 at 05:00 Docusate Sodium (Colace) 100 mg BID PO Last administered on 08/13/18 19:23; Start 08/03/18 at 21:00 Polyethylene Glycol (miraLAX) 17 gm DAILY PO Last administered on 08/13/18 08: 26; Start 08/04/18 at 09:00 Olanzapine (ZyPREXA ZYDIS) 2.5 mg PRN Q2HR PRN PO PSYCHOSIS/AGITATION Last administered on 08/11/18 22:06; Start 08/04/18 at 16:00 Insulin Human Lispro (HumaLOG) 0-5 UNITS TIDWMEALS SQ Last administered on 17:24; Start 08/05/18 at 08:00 Dextrose 12.5 gm PRN Q15MIN PRN IV SEE COMMENTS; Start 08/04/18 at 18:15 Dextrose 12.5 gm PRN Q15MIN PRN IV SEE COMMENTS; Start 08/04/18 at 18:15; Status UNV Vitamin D (Vitamin D3) 50,000 unit WEEKLY PO Last administered on 08/13/18 08: 25; Start 08/13/18 at 09:00 Sertraline HCl (Zoloft) 25 mg DAILY PO Last administered on 08/09/18 08:31; Start 08/07/18 at 09:00; Stop 08/09/18 at 11:00; Status DC Sertraline HCl (Zoloft) 50 mg DAILY PO Last administered on 08/12/18at 08:35; Start 08/10/18 at 09:00; Stop 08/12/18 at 11:00; Status DC Sertraline HCl (Zoloft) 75 mg DAILY PO Last administered on 08/13/18 08:25; Start 08/13/18 at 09:00 Tramadol HCl (Ultram) 50 mg PRN Q6HRS PRN PO PAIN Last administered on 05:35; Start 08/09/18 at 19:00 Furosemide (Lasix) 40 mg DAILY PO Last administered on 08/13/18 08:24; Start at 09:00 Active Scripts Active Reported Trazodone Hcl 50 Mg Tablet 12.5 Mg PO TID Seroquel (Quetiapine Fumarate) 25 Mg Tablet 25 Mg PO TID Metformin Hcl Er (Metformin Hcl) 500 Mg Tab.er.24h 500 Mg PO BID Furosemide 20 Mg Tablet 20 Mg PO DAILY Donepezil Hcl 10 Mg Tablet 10 Mg PO DAILY Clopidogrel (Clopidogrel Bisulfate) 75 Mg Tablet 75 Mg PO DAILY Carvedilol 25 Mg Tablet 12.5 Mg PO BIDWMEALS Atorvastatin Calcium 40 Mg Tablet 40 Mg PO DAILY Mirtazapine 15 Mg Tablet 15 Mg PO QHS Lantus Solostar (Insulin Glargine,Hum.rec.anlog) 100 Unit/1 Ml Insuln.pen 5 Units SQ QHS Aspirin Ec (Aspirin) 81 Mg Tablet. 81 Mg PO DAILY I have reviewed the current psychotropics carefully including drug interactions. Risk benefit ratio favors no change other than as noted in my dictated progress note. Diagnosis: Problems: (1) Anxiety disorder (2) Bipolar affective, mixed, sev w/ psych (3) Polysubstance abuse (4) Dementia in Alzheimer's disease with depression (5) Dementia in Alzheimer's disease with delusions (6) Dementia of the Alzheimer's type with early onset with behavioral disturbance (7) Major neurocognitive disorder JAMES MONTANEZ MD Aug 13, 2018 22:40
--- NOTE | 2018-08-14 02:38 | NUR ---
Behavior Intervention Response and Plan: BIRP Note: Behavior: Assumed Care of patient, patient located in Hallway at shift change. Patient exhibited the following behavior Calm, Disorganized, Compliant. Brief assessment on rounds of vital signs, medication needs, lab studies, and pain. Treatment plan problems . Intervention: Patient assessed and the following interventions initiated safety checks 15 Minute Checks Head to toe Assessment , Cognitive Assessment , Medications. Response: After interactions and interventions patient responded in the following manner, Delusions , Appropriate ,Interactive. Continue to assess behaviors and condition will continue to monitor throughout the shift as needed. Patient educated on ADL's, and hand hygiene. 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 Continue to assess patient for changes in above assessment. Monitor for medication needs, pain, and safety concerns. Hourly rounding performed to ensure safe environment.
--- NOTE | 2018-08-14 04:28 | PN ---
DATE: 08/11/2018 This late entry for 08/11/2018 covers elements not covered in my initial note. SUBJECTIVE: I met with the patient in the evening. The patient slept reasonably previous night. She remains confused, somewhat anxious, restless at times. REVIEW OF SYSTEMS: No CV, , pulmonary, eye, ENT system symptoms on review. MENTAL STATUS EXAM: Oriented to herself. Insight, judgment, recent and remote memory, attention, concentration, fund of knowledge poor, consistent with her diagnosis mentioned in my initial note. PLAN: No change from initial note. MAN Vicky MONTANEZ MD DR: SHAWNA/winsome JOB#: [id number] / [id number]
--- NOTE | 2018-08-14 04:29 | PN ---
DATE: 08/12/2018 This late entry for 08/12/2018 covers elements not covered in my initial note. SUBJECTIVE: I met with the patient in the evening. The patient slept 5 hours previous night. She remains confused, somewhat anxious. REVIEW OF SYSTEMS: No CV, , pulmonary, eye, ENT system symptoms on review. Reliability poor. MENTAL STATUS EXAM: Oriented to herself. Insight, judgment, recent and remote memory, attention, concentration, fund of knowledge poor, consistent with her diagnosis. LABORATORY DATA: Reviewed. IMPRESSION: Unchanged from initial note. PLAN: No change from initial note. MAN Vicky MONTANEZ MD DR: SHAWNA/winsome JOB#: [id number] / [id number]
[2018-08-14 06:03] VITALS: BP 138/73
[2018-08-14] MEDS: ASPIRIN ENTERIC COATED 81 MG TABLET.DR. PO SCH (07:22)
[2018-08-14] MEDS: POLYETHYLENE GLYCOL 3350 17 GM PACKET. PO SCH (07:22)
[2018-08-14] MEDS: DONEPEZIL HCL 10 MG TABLET PO SCH (07:22)
[2018-08-14] MEDS: ATORVASTATIN CALCIUM 20 MG TABLET PO SCH (07:22)
[2018-08-14] MEDS: FUROSEMIDE 40 MG TABLET PO SCH (07:22)
[2018-08-14] MEDS: CLOPIDOGREL BISULFATE 75 MG TABLET PO SCH (07:22)
[2018-08-14] MEDS: QUEtiapine 25 MG TABLET. PO SCH ×3 (07:22→19:17)
[2018-08-14] MEDS: metFORMIN 500 MG TABLET PO SCH ×2 (07:23→16:30)
[2018-08-14] MEDS: DOCUSATE SODIUM 100 MG CAPSULE PO SCH ×2 (07:23→19:17)
[2018-08-14] MEDS: SERTRALINE 25 MG TABLET. PO SCH (07:23)
[2018-08-14] MEDS: CARVEDILOL 12.5 MG TABLET PO SCH ×2 (07:23→16:41)
[2018-08-14] MEDS: INSULIN LISPRO 300 UNITS/3 ML INSULN.PEN. SQ SCH ×3 (08:00→17:24)
[2018-08-14 16:11] VITALS: BP 129/69
[2018-08-14] MEDS: ACETAMINOPHEN 325 MG TABLET PO PRN (16:30)
[2018-08-14] MEDS: traMADol 50 MG TABLET PO PRN (18:44)
--- NOTE | 2018-08-14 19:09 | NUR ---
Pt has been calm, cooperative, and compliant throughout shift. Pt has been out in the day room more than usual. Pt complained of pain in her feet on two separate occasions and was given PRN pain meds both times. Pt continued to katja items such as cups, napkins, and plastic cutlery, hiding them inside the waistband of her pants or brief or up her sleeves/under a jacket.
[2018-08-14] MEDS: MIRTAZAPINE 15 MG TABLET PO SCH (19:17)
[2018-08-14] MEDS: INSULIN GLARGINE 300 UNITS/3 ML INSULN.PEN. SQ SCH (19:48)
--- NOTE | 2018-08-14 20:34 | PN ---
DATE: 08/13/2018 PSYCHIATRIC PROGRESS NOTE This late entry 08/13/2018 covers elements not covered in my initial note. SUBJECTIVE: I met with the patient in the evening. The patient slept 7-3/4 hours previous night. She has been confused, somewhat depressed, rambling in her speech. REVIEW OF SYSTEMS: No CV, , pulmonary, eye, ENT system symptoms on review. Reliability poor. MENTAL STATUS EXAM: Oriented to herself. Insight, judgment, recent and remote memory, attention, concentration, fund of knowledge poor, consistent with her diagnosis mentioned in my initial note. PLAN: No change from initial note. MAN Vicky MONTANEZ MD DR: SHAWNA/winsome JOB#: [id number] / [id number]
--- NOTE | 2018-08-14 20:51 | NUR ---
Nursing note: Assumed care of pt in the day room. She was calm, compliant, and interactive. No c/o pain at this time.
--- NOTE | 2018-08-14 22:29 | PDOC ---
Exam Note: Jc Note: Please also refer to the separate dictated note~for this date of service dictated separately.~Patient seen individually. Discussed the patient with Nursing staff reviewed the chart.~Reviewed interim history and current functioning. Reviewed vital signs,~Labs/ Radiology~and current medications noted below. Continue current treatment with the changes noted in the dictated addendum note Assessment: Vital Signs: Vital Signs Date Time Temp Pulse Resp B/P (MAP) Pulse Ox O2 Delivery O2 Flow Rate FiO2 08/14/18 19:47 100 Room Air 08/14/18 18:44 18 08/14/18 16:41 61 129/69 08/14/18 16:11 99.1 I&O Intake and Output 08/14/18 06:59 Intake Total 1080 ml Balance 1080 ml Intake Oral 1080 ml Labs: Laboratory Tests Test 08/14/18 07:33 08/14/18 11:38 08/14/18 16:52 08/14/18 19:20 Glucose (Fingerstick) 112 mg/dL (70-99) H 173 mg/dL (70-99) H 196 mg/dL (70-99) H 198 mg/dL (70-99) H Current Medications: Meds: Current Medications Acetaminophen (Tylenol) 650 mg PRN Q6HRS PRN PO PAIN / TEMP Last administered on 08/14/18 16:30; Start 08/02/18 at 19:30 Multi-Ingredient Ointment (Analgesic [place]) 1 ashlyn PRN QID PRN TP MUSCLE PAIN Last administered on 08/08/18at 13:18; Start 08/02/18 at 19:30 Al Hydroxide/Mg Hydroxide (Mylanta Plus Xs) 15 ml PRN AFTMEALHC PRN PO DYSPEPSIA; Start 08/02/18 at 19:30 Magnesium Hydroxide (Milk Of Magnesia) 2,400 mg PRN QHS PRN PO CONSTIPATION; Start 08/02/18 at 19:30 Donepezil HCl (Aricept) 10 mg DAILY PO Last administered on 08/14/18at 07:22; Start 08/03/18 at 09:00 Mirtazapine (Remeron) 15 mg QHS PO Last administered on 08/14/18at 19:17; Start 08/02/18 at 21:00 Quetiapine Fumarate (SEROquel) 25 mg TID PO Last administered on 08/14/18 19:17 ; Start 08/02/18 at 21:00 Trazodone HCl (Desyrel) 12.5 mg TID PO Last administered on 08/02/18 21:19; Start 08/02/18 at 21:00; Stop 08/03/18 at 04:54; Status DC Clopidogrel Bisulfate (Plavix) 75 mg DAILY PO Last administered on 08/14/18 07: 22; Start 08/03/18 at 09:00 Furosemide (Lasix) 20 mg DAILY PO Last administered on 08/11/18 07:27; Start at 09:00; Stop 08/11/18 at 16:02; Status DC Insulin Glargine (Lantus) 5 units QHS SQ Last administered on 08/14/18 19:48; Start 08/02/18 at 21:00 Aspirin (Aspirin Enteric Coated) 81 mg DAILY PO Last administered on 08/14/18 07:22; Start 08/03/18 at 09:00 Atorvastatin Calcium (Lipitor) 40 mg DAILY PO Last administered on 08/14/18 07: 22; Start 08/03/18 at 09:00 Carvedilol (Coreg) 12.5 mg BIDWMEALS PO Last administered on 08/14/18 16:41; Start 08/03/18 at 08:00 Metformin HCl (Glucophage) 500 mg BIDWMEALS PO Last administered on 08/14/18 16 :30; Start 08/03/18 at 08:00 Trazodone HCl (Desyrel) 12.5 mg PRN TID PRN PO Agitation Last administered on 22:06; Start 08/03/18 at 05:00 Docusate Sodium (Colace) 100 mg BID PO Last administered on 08/14/18 19:17; Start 08/03/18 at 21:00 Polyethylene Glycol (miraLAX) 17 gm DAILY PO Last administered on 08/14/18 07: 22; Start 08/04/18 at 09:00 Olanzapine (ZyPREXA ZYDIS) 2.5 mg PRN Q2HR PRN PO PSYCHOSIS/AGITATION Last administered on 08/11/18 22:06; Start 08/04/18 at 16:00 Insulin Human Lispro (HumaLOG) 0-5 UNITS TIDWMEALS SQ Last administered on at 17:24; Start 08/05/18 at 08:00 Dextrose 12.5 gm PRN Q15MIN PRN IV SEE COMMENTS; Start 08/04/18 at 18:15 Dextrose 12.5 gm PRN Q15MIN PRN IV SEE COMMENTS; Start 08/04/18 at 18:15; Status UNV Vitamin D (Vitamin D3) 50,000 unit WEEKLY PO Last administered on 08/13/18at 08: 25; Start 08/13/18 at 09:00 Sertraline HCl (Zoloft) 25 mg DAILY PO Last administered on 08/09/18at 08:31; Start 08/07/18 at 09:00; Stop 08/09/18 at 11:00; Status DC Sertraline HCl (Zoloft) 50 mg DAILY PO Last administered on 08/12/18at 08:35; Start 08/10/18 at 09:00; Stop 08/12/18 at 11:00; Status DC Sertraline HCl (Zoloft) 75 mg DAILY PO Last administered on 08/14/18at 07:23; Start 08/13/18 at 09:00 Tramadol HCl (Ultram) 50 mg PRN Q6HRS PRN PO PAIN Last administered on at 18:44; Start 08/09/18 at 19:00 Furosemide (Lasix) 40 mg DAILY PO Last administered on 08/14/18at 07:22; Start at 09:00 Active Scripts Active Reported Trazodone Hcl 50 Mg Tablet 12.5 Mg PO TID Seroquel (Quetiapine Fumarate) 25 Mg Tablet 25 Mg PO TID Metformin Hcl Er (Metformin Hcl) 500 Mg Tab.er.24h 500 Mg PO BID Furosemide 20 Mg Tablet 20 Mg PO DAILY Donepezil Hcl 10 Mg Tablet 10 Mg PO DAILY Clopidogrel (Clopidogrel Bisulfate) 75 Mg Tablet 75 Mg PO DAILY Carvedilol 25 Mg Tablet 12.5 Mg PO BIDWMEALS Atorvastatin Calcium 40 Mg Tablet 40 Mg PO DAILY Mirtazapine 15 Mg Tablet 15 Mg PO QHS Lantus Solostar (Insulin Glargine,Hum.rec.anlog) 100 Unit/1 Ml Insuln.pen 5 Units SQ QHS Aspirin Ec (Aspirin) 81 Mg Tablet. 81 Mg PO DAILY I have reviewed the current psychotropics carefully including drug interactions. Risk benefit ratio favors no change other than as noted in my dictated progress note. Diagnosis: Problems: (1) Anxiety disorder (2) Bipolar affective, mixed, sev w/ psych (3) Polysubstance abuse (4) Dementia in Alzheimer's disease with depression (5) Dementia in Alzheimer's disease with delusions (6) Dementia of the Alzheimer's type with early onset with behavioral disturbance (7) Major neurocognitive disorder JAMES MONTANEZ MD Aug 14, 2018 22:29
[2018-08-15] MEDS: ACETAMINOPHEN 325 MG TABLET PO PRN (05:31)
[2018-08-15 05:55] VITALS: BP 111/59
[2018-08-15] MEDS: POLYETHYLENE GLYCOL 3350 17 GM PACKET. PO SCH (07:32)
[2018-08-15] MEDS: QUEtiapine 25 MG TABLET. PO SCH ×3 (07:33→19:38)
[2018-08-15] MEDS: DONEPEZIL HCL 10 MG TABLET PO SCH (07:33)
[2018-08-15] MEDS: ATORVASTATIN CALCIUM 20 MG TABLET PO SCH (07:33)
[2018-08-15] MEDS: DOCUSATE SODIUM 100 MG CAPSULE PO SCH ×2 (07:33→19:38)
[2018-08-15] MEDS: ASPIRIN ENTERIC COATED 81 MG TABLET.DR. PO SCH (07:33)
[2018-08-15] MEDS: metFORMIN 500 MG TABLET PO SCH ×2 (07:33→16:02)
[2018-08-15] MEDS: SERTRALINE 25 MG TABLET. PO SCH (07:33)
[2018-08-15] MEDS: FUROSEMIDE 40 MG TABLET PO SCH (07:33)
[2018-08-15] MEDS: CLOPIDOGREL BISULFATE 75 MG TABLET PO SCH (07:33)
[2018-08-15] MEDS: CARVEDILOL 12.5 MG TABLET PO SCH ×2 (07:34→16:24)
[2018-08-15] MEDS: INSULIN LISPRO 300 UNITS/3 ML INSULN.PEN. SQ SCH ×3 (08:00→17:59)
[2018-08-15] MEDS: traMADol 50 MG TABLET PO PRN (11:32)
[2018-08-15 16:36] VITALS: BP 123/58
--- NOTE | 2018-08-15 19:27 | NUR ---
Pt calm, cooperative, and compliant with meds and assessment. Pt calm for most of shift. Pt c/o pain in feet and PRN Tramadol administered. Pt appreciative of pain meds. Upon reassessment of pain, pt happy and smiling and stated "I feel much better."
[2018-08-15] MEDS: MIRTAZAPINE 15 MG TABLET PO SCH (19:38)
[2018-08-15] MEDS: INSULIN GLARGINE 300 UNITS/3 ML INSULN.PEN. SQ SCH (19:39)
--- NOTE | 2018-08-15 21:15 | NUR ---
Nursing note: Assumed care of pt in the day room. She was visiting with a peer and seemed content. She was compliant and pleasant. No c/o pain.
--- NOTE | 2018-08-15 22:35 | PDOC ---
Exam Note: Jc Note: Please also refer to the separate dictated note~for this date of service dictated separately.~Patient seen individually. Discussed the patient with Nursing staff reviewed the chart.~Reviewed interim history and current functioning. Reviewed vital signs,~Labs/ Radiology~and current medications noted below. Continue current treatment with the changes noted in the dictated addendum note Assessment: Vital Signs: Vital Signs Date Time Temp Pulse Resp B/P (MAP) Pulse Ox O2 Delivery O2 Flow Rate FiO2 08/15/18 16:36 97.7 54 20 123/58 (79) 99 08/14/18 19:47 Room Air I&O Intake and Output 08/15/18 07:00 Intake Total 1080 ml Balance 1080 ml Intake Oral 1080 ml Labs: Laboratory Tests Test 08/15/18 07:22 08/15/18 11:32 08/15/18 16:13 08/15/18 19:23 Glucose (Fingerstick) 123 mg/dL (70-99) H 225 mg/dL (70-99) H 194 mg/dL (70-99) H 198 mg/dL (70-99) H Current Medications: Meds: Current Medications Acetaminophen (Tylenol) 650 mg PRN Q6HRS PRN PO PAIN / TEMP Last administered on 08/15/18 05:31; Start 08/02/18 at 19:30 Multi-Ingredient Ointment (Analgesic [place]) 1 ashlyn PRN QID PRN TP MUSCLE PAIN Last administered on 08/08/18 13:18; Start 08/02/18 at 19:30 Al Hydroxide/Mg Hydroxide (Mylanta Plus Xs) 15 ml PRN AFTMEALHC PRN PO DYSPEPSIA; Start 08/02/18 at 19:30 Magnesium Hydroxide (Milk Of Magnesia) 2,400 mg PRN QHS PRN PO CONSTIPATION; Start 08/02/18 at 19:30 Donepezil HCl (Aricept) 10 mg DAILY PO Last administered on 08/15/18 07:33; Start 08/03/18 at 09:00 Mirtazapine (Remeron) 15 mg QHS PO Last administered on 08/15/18 19:38; Start 08/02/18 at 21:00 Quetiapine Fumarate (SEROquel) 25 mg TID PO Last administered on 08/15/18 19: 38; Start 08/02/18 at 21:00 Trazodone HCl (Desyrel) 12.5 mg TID PO Last administered on 08/02/18 21:19; Start 08/02/18 at 21:00; Stop 08/03/18 at 04:54; Status DC Clopidogrel Bisulfate (Plavix) 75 mg DAILY PO Last administered on 08/15/18 07 :33; Start 08/03/18 at 09:00 Furosemide (Lasix) 20 mg DAILY PO Last administered on 08/11/18 07:27; Start at 09:00; Stop 08/11/18 at 16:02; Status DC Insulin Glargine (Lantus) 5 units QHS SQ Last administered on 08/15/18 19:39; Start 08/02/18 at 21:00 Aspirin (Aspirin Enteric Coated) 81 mg DAILY PO Last administered on 08/15/18 07:33; Start 08/03/18 at 09:00 Atorvastatin Calcium (Lipitor) 40 mg DAILY PO Last administered on 08/15/18 07 :33; Start 08/03/18 at 09:00 Carvedilol (Coreg) 12.5 mg BIDWMEALS PO Last administered on 08/15/18 07:34; Start 08/03/18 at 08:00 Metformin HCl (Glucophage) 500 mg BIDWMEALS PO Last administered on 08/15/18 16:02; Start 08/03/18 at 08:00 Trazodone HCl (Desyrel) 12.5 mg PRN TID PRN PO Agitation Last administered on 22:06; Start 08/03/18 at 05:00 Docusate Sodium (Colace) 100 mg BID PO Last administered on 08/15/18 19:38; Start 08/03/18 at 21:00 Polyethylene Glycol (miraLAX) 17 gm DAILY PO Last administered on 08/15/18 07: 32; Start 08/04/18 at 09:00 Olanzapine (ZyPREXA ZYDIS) 2.5 mg PRN Q2HR PRN PO PSYCHOSIS/AGITATION Last administered on 08/11/18 22:06; Start 08/04/18 at 16:00 Insulin Human Lispro (HumaLOG) 0-5 UNITS TIDWMEALS SQ Last administered on 08/15at 17:59; Start 08/05/18 at 08:00 Dextrose 12.5 gm PRN Q15MIN PRN IV SEE COMMENTS; Start 08/04/18 at 18:15 Dextrose 12.5 gm PRN Q15MIN PRN IV SEE COMMENTS; Start 08/04/18 at 18:15; Status UNV Vitamin D (Vitamin D3) 50,000 unit WEEKLY PO Last administered on 08/13/18at 08: 25; Start 08/13/18 at 09:00 Sertraline HCl (Zoloft) 25 mg DAILY PO Last administered on 08/09/18at 08:31; Start 08/07/18 at 09:00; Stop 08/09/18 at 11:00; Status DC Sertraline HCl (Zoloft) 50 mg DAILY PO Last administered on 08/12/18at 08:35; Start 08/10/18 at 09:00; Stop 08/12/18 at 11:00; Status DC Sertraline HCl (Zoloft) 75 mg DAILY PO Last administered on 08/15/18at 07:33; Start 08/13/18 at 09:00; Stop 08/15/18 at 17:22; Status DC Tramadol HCl (Ultram) 50 mg PRN Q6HRS PRN PO PAIN Last administered on at 11:32; Start 08/09/18 at 19:00 Furosemide (Lasix) 40 mg DAILY PO Last administered on 08/15/18at 07:33; Start 08/12/18 at 09:00 Sertraline HCl (Zoloft) 100 mg DAILY PO ; Start 08/16/18 at 09:00 Active Scripts Active Reported Trazodone Hcl 50 Mg Tablet 12.5 Mg PO TID Seroquel (Quetiapine Fumarate) 25 Mg Tablet 25 Mg PO TID Metformin Hcl Er (Metformin Hcl) 500 Mg Tab.er.24h 500 Mg PO BID Furosemide 20 Mg Tablet 20 Mg PO DAILY Donepezil Hcl 10 Mg Tablet 10 Mg PO DAILY Clopidogrel (Clopidogrel Bisulfate) 75 Mg Tablet 75 Mg PO DAILY Carvedilol 25 Mg Tablet 12.5 Mg PO BIDWMEALS Atorvastatin Calcium 40 Mg Tablet 40 Mg PO DAILY Mirtazapine 15 Mg Tablet 15 Mg PO QHS Lantus Solostar (Insulin Glargine,Hum.rec.anlog) 100 Unit/1 Ml Insuln.pen 5 Units SQ QHS Aspirin Ec (Aspirin) 81 Mg Tablet. 81 Mg PO DAILY I have reviewed the current psychotropics carefully including drug interactions. Risk benefit ratio favors no change other than as noted in my dictated progress note. Diagnosis: Problems: (1) Anxiety disorder (2) Bipolar affective, mixed, sev w/ psych (3) Polysubstance abuse (4) Dementia in Alzheimer's disease with depression (5) Dementia in Alzheimer's disease with delusions (6) Dementia of the Alzheimer's type with early onset with behavioral disturbance (7) Major neurocognitive disorder JAMES MONTANEZ MD Aug 15, 2018 22:35
--- NOTE | 2018-08-15 23:09 | PN ---
DATE: 08/14/2018 This late entry for 08/14/2018 covers elements not covered in my initial note. SUBJECTIVE: I met with the patient in the evening. The patient slept 7 hours previous night. She remains confused. Does complain of leg pain, received Tylenol, somewhat anxious, irritable at times as I met with her. REVIEW OF SYSTEMS: Ambulation impaired, in wheelchair, sometimes walker. No CV, , pulmonary, eye system symptoms on review. MENTAL STATUS EXAM: Oriented to herself. Insight, judgment, recent and remote memory, attention, concentration, fund of knowledge poor, consistent with her diagnosis mentioned in my initial note. IMPRESSION: Unchanged from initial note. PLAN: No change from initial note. MAN Vicky MONTANEZ MD DR: SHAWNA/winsome JOB#: [id number] / [id number]
[2018-08-16 05:53] VITALS: BP 128/59
[2018-08-16] MEDS: INSULIN LISPRO 300 UNITS/3 ML INSULN.PEN. SQ SCH ×3 (08:00→17:00)
[2018-08-16] MEDS: ATORVASTATIN CALCIUM 20 MG TABLET PO SCH (09:40)
[2018-08-16] MEDS: QUEtiapine 25 MG TABLET. PO SCH ×3 (09:40→20:03)
[2018-08-16] MEDS: DONEPEZIL HCL 10 MG TABLET PO SCH (09:40)
[2018-08-16] MEDS: CLOPIDOGREL BISULFATE 75 MG TABLET PO SCH (09:40)
[2018-08-16] MEDS: metFORMIN 500 MG TABLET PO SCH ×2 (09:41→17:45)
[2018-08-16] MEDS: DOCUSATE SODIUM 100 MG CAPSULE PO SCH ×2 (09:41→20:03)
[2018-08-16] MEDS: ASPIRIN ENTERIC COATED 81 MG TABLET.DR. PO SCH (09:41)
[2018-08-16] MEDS: CARVEDILOL 12.5 MG TABLET PO SCH ×2 (09:41→17:46)
[2018-08-16] MEDS: FUROSEMIDE 40 MG TABLET PO SCH (09:41)
[2018-08-16] MEDS: POLYETHYLENE GLYCOL 3350 17 GM PACKET. PO SCH (09:42)
[2018-08-16] MEDS: SERTRALINE 100 MG TABLET. PO SCH (09:44)
--- NOTE | 2018-08-16 09:55 | NUR ---
WEEKLY ACTIVITY THERAPY NOTE Date of Admission: 08/02/2018 Date of AT Assessment: 08/05/2018 Goal aimed: to increase attention span and engagement Initial Goal: Pt. will participate in at least three Activity Therapy groups per week. Weekly progress towards goal: exceeded Group participation level: minimal Weekly highlights: Pt. believed something was on her walker keeping it from working properly, PIG MACHINE OPERATOR wiped the walker with a paper towel which satisfied Pt. who was then willing to join group room and watch activity on Monday Beneficial adaptations: direct prompting, encouragement, extra time to process Behaviors observed: hardly ever in group the entire time- often joins late or leaves early, talkative, able to give vague ideas struggles to give clear answers Plan: no change to goal
--- NOTE | 2018-08-16 10:00 | NUR ---
Nursing Note Pt calm, pleasant, cooperative w/ cares, compliant w/ meds taken whole. Pt interactive in day room.
--- NOTE | 2018-08-16 11:54 | NUR ---
WEEKLY NOTE: Pt is eating roughly 75% of meals and sleeping an avg of 7 hours. Pt has minimal group participation but interacts okay with staff. Pt needs encouragement to complete her bathing, in which she tends to yell the whole time. Pt has not been physically aggressive and can be at times easily redirected as needed. ELOS for pt is Monday08/17/18.
[2018-08-16] MEDS: ACETAMINOPHEN 325 MG TABLET PO PRN (13:21)
[2018-08-16 16:19] VITALS: BP 130/73
[2018-08-16] MEDS: MIRTAZAPINE 15 MG TABLET PO SCH (20:03)
[2018-08-16] MEDS: INSULIN GLARGINE 300 UNITS/3 ML INSULN.PEN. SQ SCH (20:05)
--- NOTE | 2018-08-16 22:13 | NUR ---
Nursing note: Assumed care of pt in the day room. She was pleasant, calm, and compliant. She has not been tearful or had any behaviors. No c/o pain. Alert to self only.
--- NOTE | 2018-08-16 22:43 | PDOC ---
Exam Note: Jc Note: Please also refer to the separate dictated note~for this date of service dictated separately.~Patient seen individually. Discussed the patient with Nursing staff reviewed the chart.~Reviewed interim history and current functioning. Reviewed vital signs,~Labs/ Radiology~and current medications noted below. Continue current treatment with the changes noted in the dictated addendum note Assessment: Vital Signs: Vital Signs Date Time Temp Pulse Resp B/P (MAP) Pulse Ox O2 Delivery O2 Flow Rate FiO2 08/16/18 17:46 65 130/73 08/16/18 16:19 97.3 20 97 08/14/18 19:47 Room Air I&O Intake and Output 08/16/18 06:59 Intake Total 960 ml Balance 960 ml Intake Oral 960 ml Labs: Laboratory Tests Test 08/16/18 07:15 08/16/18 11:10 08/16/18 17:10 08/16/18 19:24 Glucose (Fingerstick) 133 mg/dL (70-99) H 176 mg/dL (70-99) H 142 mg/dL (70-99) H 162 mg/dL (70-99) H Current Medications: Meds: Current Medications Acetaminophen (Tylenol) 650 mg PRN Q6HRS PRN PO PAIN / TEMP Last administered on 08/16/18 13:21; Start 08/02/18 at 19:30 Multi-Ingredient Ointment (Analgesic [place]) 1 ashlyn PRN QID PRN TP MUSCLE PAIN Last administered on 08/08/18 13:18; Start 08/02/18 at 19:30 Al Hydroxide/Mg Hydroxide (Mylanta Plus Xs) 15 ml PRN AFTMEALHC PRN PO DYSPEPSIA; Start 08/02/18 at 19:30 Magnesium Hydroxide (Milk Of Magnesia) 2,400 mg PRN QHS PRN PO CONSTIPATION; Start 08/02/18 at 19:30 Donepezil HCl (Aricept) 10 mg DAILY PO Last administered on 08/16/18 09:40; Start 08/03/18 at 09:00 Mirtazapine (Remeron) 15 mg QHS PO Last administered on 08/16/18 20:03; Start 08/02/18 at 21:00 Quetiapine Fumarate (SEROquel) 25 mg TID PO Last administered on 08/16/18 20: 03; Start 08/02/18 at 21:00 Trazodone HCl (Desyrel) 12.5 mg TID PO Last administered on 08/02/18 21:19; Start 08/02/18 at 21:00; Stop 08/03/18 at 04:54; Status DC Clopidogrel Bisulfate (Plavix) 75 mg DAILY PO Last administered on 08/16/18 09 :40; Start 08/03/18 at 09:00 Furosemide (Lasix) 20 mg DAILY PO Last administered on 08/11/18 07:27; Start at 09:00; Stop 08/11/18 at 16:02; Status DC Insulin Glargine (Lantus) 5 units QHS SQ Last administered on 08/16/18 20:05; Start 08/02/18 at 21:00 Aspirin (Aspirin Enteric Coated) 81 mg DAILY PO Last administered on 08/16/18 09:41; Start 08/03/18 at 09:00 Atorvastatin Calcium (Lipitor) 40 mg DAILY PO Last administered on 08/16/18 09 :40; Start 08/03/18 at 09:00 Carvedilol (Coreg) 12.5 mg BIDWMEALS PO Last administered on 08/16/18 17:46; Start 08/03/18 at 08:00 Metformin HCl (Glucophage) 500 mg BIDWMEALS PO Last administered on 08/16/18 17:45; Start 08/03/18 at 08:00 Trazodone HCl (Desyrel) 12.5 mg PRN TID PRN PO Agitation Last administered on 22:06; Start 08/03/18 at 05:00 Docusate Sodium (Colace) 100 mg BID PO Last administered on 08/16/18 20:03; Start 08/03/18 at 21:00 Polyethylene Glycol (miraLAX) 17 gm DAILY PO Last administered on 08/16/18 09: 42; Start 08/04/18 at 09:00 Olanzapine (ZyPREXA ZYDIS) 2.5 mg PRN Q2HR PRN PO PSYCHOSIS/AGITATION Last administered on 08/11/18 22:06; Start 08/04/18 at 16:00 Insulin Human Lispro (HumaLOG) 0-5 UNITS TIDWMEALS SQ Last administered on 08/16at 12:22; Start 08/05/18 at 08:00 Dextrose 12.5 gm PRN Q15MIN PRN IV SEE COMMENTS; Start 08/04/18 at 18:15 Dextrose 12.5 gm PRN Q15MIN PRN IV SEE COMMENTS; Start 08/04/18 at 18:15; Status UNV Vitamin D (Vitamin D3) 50,000 unit WEEKLY PO Last administered on 08/13/18at 08: 25; Start 08/13/18 at 09:00 Sertraline HCl (Zoloft) 25 mg DAILY PO Last administered on 08/09/18at 08:31; Start 08/07/18 at 09:00; Stop 08/09/18 at 11:00; Status DC Sertraline HCl (Zoloft) 50 mg DAILY PO Last administered on 08/12/18at 08:35; Start 08/10/18 at 09:00; Stop 08/12/18 at 11:00; Status DC Sertraline HCl (Zoloft) 75 mg DAILY PO Last administered on 08/15/18at 07:33; Start 08/13/18 at 09:00; Stop 08/15/18 at 17:22; Status DC Tramadol HCl (Ultram) 50 mg PRN Q6HRS PRN PO PAIN Last administered on at 11:32; Start 08/09/18 at 19:00 Furosemide (Lasix) 40 mg DAILY PO Last administered on 08/16/18at 09:41; Start 08/12/18 at 09:00 Sertraline HCl (Zoloft) 100 mg DAILY PO Last administered on 08/16/18at 09:44; Start 08/16/18 at 09:00 Active Scripts Active Reported Trazodone Hcl 50 Mg Tablet 12.5 Mg PO TID Seroquel (Quetiapine Fumarate) 25 Mg Tablet 25 Mg PO TID Metformin Hcl Er (Metformin Hcl) 500 Mg Tab.er.24h 500 Mg PO BID Furosemide 20 Mg Tablet 20 Mg PO DAILY Donepezil Hcl 10 Mg Tablet 10 Mg PO DAILY Clopidogrel (Clopidogrel Bisulfate) 75 Mg Tablet 75 Mg PO DAILY Carvedilol 25 Mg Tablet 12.5 Mg PO BIDWMEALS Atorvastatin Calcium 40 Mg Tablet 40 Mg PO DAILY Mirtazapine 15 Mg Tablet 15 Mg PO QHS Lantus Solostar (Insulin Glargine,Hum.rec.anlog) 100 Unit/1 Ml Insuln.pen 5 Units SQ QHS Aspirin Ec (Aspirin) 81 Mg Tablet. 81 Mg PO DAILY I have reviewed the current psychotropics carefully including drug interactions. Risk benefit ratio favors no change other than as noted in my dictated progress note. Diagnosis: Problems: (1) Anxiety disorder (2) Bipolar affective, mixed, sev w/ psych (3) Polysubstance abuse (4) Dementia in Alzheimer's disease with depression (5) Dementia in Alzheimer's disease with delusions (6) Dementia of the Alzheimer's type with early onset with behavioral disturbance (7) Major neurocognitive disorder JAMES MONTANEZ MD Aug 16, 2018 22:43
[2018-08-17 05:52] VITALS: BP 136/81
[2018-08-17] MEDS: INSULIN LISPRO 300 UNITS/3 ML INSULN.PEN. SQ SCH ×3 (08:00→17:27)
[2018-08-17] MEDS: CARVEDILOL 12.5 MG TABLET PO SCH ×2 (08:22→17:00)
[2018-08-17] MEDS: metFORMIN 500 MG TABLET PO SCH ×2 (08:23→17:24)
[2018-08-17] MEDS: DONEPEZIL HCL 10 MG TABLET PO SCH (08:23)
[2018-08-17] MEDS: ASPIRIN ENTERIC COATED 81 MG TABLET.DR. PO SCH (08:23)
[2018-08-17] MEDS: FUROSEMIDE 40 MG TABLET PO SCH (08:24)
[2018-08-17] MEDS: ATORVASTATIN CALCIUM 20 MG TABLET PO SCH (08:24)
[2018-08-17] MEDS: DOCUSATE SODIUM 100 MG CAPSULE PO SCH ×2 (08:24→19:37)
[2018-08-17] MEDS: QUEtiapine 25 MG TABLET. PO SCH ×3 (08:25→19:37)
[2018-08-17] MEDS: CLOPIDOGREL BISULFATE 75 MG TABLET PO SCH (08:25)
[2018-08-17] MEDS: SERTRALINE 100 MG TABLET. PO SCH (08:25)
[2018-08-17] MEDS: POLYETHYLENE GLYCOL 3350 17 GM PACKET. PO SCH (08:25)
--- NOTE | 2018-08-17 10:19 | NUR ---
Assumed care of pt @ approx 0700. Pt oriented to self only. Pleasantly confused, but compliant w/meds and assessment. No signs of hallucinations, delusions, or paranoia noted. No inappropriate behaviors so far this shift. Denies SI/HI. Denies pain. Currently sitting in the Day Room quietly with her peers. Will continue to monitor and assist pt in working towards her treatment and D/C goals.
[2018-08-17 16:03] VITALS: BP 124/59
--- NOTE | 2018-08-17 16:24 | NUR ---
KISHA met with Cleo to discuss pt discharge. Pt preferred to have her discharge on Monday. She will have be on their way back from [place] and get her on the way. Pt dtr is continuing to gather information to get pt Medicaid approved. KISHA will get pt discharge paperwork completed.
--- NOTE | 2018-08-17 16:47 | NUR ---
[facility] Social Work Discharge Planning Form Patient Name STANFORD LYONS Admit Date: 08/02/18 DISCHARGE PLAN Discharge Destination: Home with daughter Care Assessment: N/A Level II Assessment: N/A Transportation: Pt dtr to pick pt up Monday between 3:30 and 5 Special Instructions/Notes: Please fax pt medication list and any pertinent information to the primary care fax number listed below. DISCHARGE TO HOME: Address: [address] [place] [address] Responsible Democrat: Daughter: Cleo Odom Pharmacy: [facility]; [facility] [place] [address] Contact Information: Psychiatrist/Mental Health Follow Up: Dtr to set up outpt psychiatric appt with [facility] Primary Care Follow Up: Dr. Rae Contact Information: [address] [place] [address] Appointment: Dr. Rae is scheduled out until September. computer help desk specialist requested that pt dtr call on Monday to give them time to look at the schedule and get pt in sooner.
[2018-08-17] MEDS: MIRTAZAPINE 15 MG TABLET PO SCH (19:37)
[2018-08-17] MEDS: INSULIN GLARGINE 300 UNITS/3 ML INSULN.PEN. SQ SCH (19:54)
--- NOTE | 2018-08-17 22:49 | PDOC ---
Exam Note: Jc Note: Please also refer to the separate dictated note~for this date of service dictated separately.~Patient seen individually. Discussed the patient with Nursing staff reviewed the chart.~Reviewed interim history and current functioning. Reviewed vital signs,~Labs/ Radiology~and current medications noted below. Continue current treatment with the changes noted in the dictated addendum note Assessment: Vital Signs: Vital Signs Date Time Temp Pulse Resp B/P (MAP) Pulse Ox O2 Delivery O2 Flow Rate FiO2 08/17/18 17:00 57 124/59 08/17/18 16:03 97.4 20 96 08/14/18 19:47 Room Air I&O Intake and Output 08/17/18 07:00 Intake Total 960 ml Balance 960 ml Intake Oral 960 ml # Voids 1 Labs: Laboratory Tests Test 08/17/18 07:08 08/17/18 11:47 08/17/18 17:01 08/17/18 19:14 Glucose (Fingerstick) 105 mg/dL (70-99) H 165 mg/dL (70-99) H 220 mg/dL (70-99) H 235 mg/dL (70-99) H Current Medications: Meds: Current Medications Acetaminophen (Tylenol) 650 mg PRN Q6HRS PRN PO PAIN / TEMP Last administered on 08/16/18at 13:21; Start 08/02/18 at 19:30 Multi-Ingredient Ointment (Analgesic [place]) 1 ashlyn PRN QID PRN TP MUSCLE PAIN Last administered on 08/08/18 13:18; Start 08/02/18 at 19:30 Al Hydroxide/Mg Hydroxide (Mylanta Plus Xs) 15 ml PRN AFTMEALHC PRN PO DYSPEPSIA; Start 08/02/18 at 19:30 Magnesium Hydroxide (Milk Of Magnesia) 2,400 mg PRN QHS PRN PO CONSTIPATION; Start 08/02/18 at 19:30 Donepezil HCl (Aricept) 10 mg DAILY PO Last administered on 08/17/18at 08:23; Start 08/03/18 at 09:00 Mirtazapine (Remeron) 15 mg QHS PO Last administered on 08/17/18at 19:37; Start 08/02/18 at 21:00 Quetiapine Fumarate (SEROquel) 25 mg TID PO Last administered on 08/17/18 19: 37; Start 08/02/18 at 21:00 Trazodone HCl (Desyrel) 12.5 mg TID PO Last administered on 08/02/18 21:19; Start 08/02/18 at 21:00; Stop 08/03/18 at 04:54; Status DC Clopidogrel Bisulfate (Plavix) 75 mg DAILY PO Last administered on 08/17/18 08 :25; Start 08/03/18 at 09:00 Furosemide (Lasix) 20 mg DAILY PO Last administered on 08/11/18 07:27; Start at 09:00; Stop 08/11/18 at 16:02; Status DC Insulin Glargine (Lantus) 5 units QHS SQ Last administered on 08/17/18 19:54; Start 08/02/18 at 21:00 Aspirin (Aspirin Enteric Coated) 81 mg DAILY PO Last administered on 08/17/18 08:23; Start 08/03/18 at 09:00 Atorvastatin Calcium (Lipitor) 40 mg DAILY PO Last administered on 08/17/18 08 :24; Start 08/03/18 at 09:00 Carvedilol (Coreg) 12.5 mg BIDWMEALS PO Last administered on 08/17/18 08:22; Start 08/03/18 at 08:00 Metformin HCl (Glucophage) 500 mg BIDWMEALS PO Last administered on 08/17/18 17:24; Start 08/03/18 at 08:00 Trazodone HCl (Desyrel) 12.5 mg PRN TID PRN PO Agitation Last administered on 22:06; Start 08/03/18 at 05:00 Docusate Sodium (Colace) 100 mg BID PO Last administered on 08/17/18 19:37; Start 08/03/18 at 21:00 Polyethylene Glycol (miraLAX) 17 gm DAILY PO Last administered on 08/17/18 08: 25; Start 08/04/18 at 09:00 Olanzapine (ZyPREXA ZYDIS) 2.5 mg PRN Q2HR PRN PO PSYCHOSIS/AGITATION Last administered on 08/11/18 22:06; Start 08/04/18 at 16:00 Insulin Human Lispro (HumaLOG) 0-5 UNITS TIDWMEALS SQ Last administered on 08/17at 17:27; Start 08/05/18 at 08:00 Dextrose 12.5 gm PRN Q15MIN PRN IV SEE COMMENTS; Start 08/04/18 at 18:15 Dextrose 12.5 gm PRN Q15MIN PRN IV SEE COMMENTS; Start 08/04/18 at 18:15; Status UNV Vitamin D (Vitamin D3) 50,000 unit WEEKLY PO Last administered on 08/13/18at 08: 25; Start 08/13/18 at 09:00 Sertraline HCl (Zoloft) 25 mg DAILY PO Last administered on 08/09/18at 08:31; Start 08/07/18 at 09:00; Stop 08/09/18 at 11:00; Status DC Sertraline HCl (Zoloft) 50 mg DAILY PO Last administered on 08/12/18at 08:35; Start 08/10/18 at 09:00; Stop 08/12/18 at 11:00; Status DC Sertraline HCl (Zoloft) 75 mg DAILY PO Last administered on 08/15/18at 07:33; Start 08/13/18 at 09:00; Stop 08/15/18 at 17:22; Status DC Tramadol HCl (Ultram) 50 mg PRN Q6HRS PRN PO PAIN Last administered on at 11:32; Start 08/09/18 at 19:00 Furosemide (Lasix) 40 mg DAILY PO Last administered on 08/17/18at 08:24; Start 08/12/18 at 09:00 Sertraline HCl (Zoloft) 100 mg DAILY PO Last administered on 08/17/18at 08:25; Start 08/16/18 at 09:00 Active Scripts Active Reported Trazodone Hcl 50 Mg Tablet 12.5 Mg PO TID Seroquel (Quetiapine Fumarate) 25 Mg Tablet 25 Mg PO TID Metformin Hcl Er (Metformin Hcl) 500 Mg Tab.er.24h 500 Mg PO BID Furosemide 20 Mg Tablet 20 Mg PO DAILY Donepezil Hcl 10 Mg Tablet 10 Mg PO DAILY Clopidogrel (Clopidogrel Bisulfate) 75 Mg Tablet 75 Mg PO DAILY Carvedilol 25 Mg Tablet 12.5 Mg PO BIDWMEALS Atorvastatin Calcium 40 Mg Tablet 40 Mg PO DAILY Mirtazapine 15 Mg Tablet 15 Mg PO QHS Lantus Solostar (Insulin Glargine,Hum.rec.anlog) 100 Unit/1 Ml Insuln.pen 5 Units SQ QHS Aspirin Ec (Aspirin) 81 Mg Tablet.dr 81 Mg PO DAILY I have reviewed the current psychotropics carefully including drug interactions. Risk benefit ratio favors no change other than as noted in my dictated progress note. Diagnosis: Problems: (1) Anxiety disorder (2) Bipolar affective, mixed, sev w/ psych (3) Polysubstance abuse (4) Dementia in Alzheimer's disease with depression (5) Dementia in Alzheimer's disease with delusions (6) Dementia of the Alzheimer's type with early onset with behavioral disturbance (7) Major neurocognitive disorder JAMES MONTANEZ MD Aug 17, 2018 22:49
--- NOTE | 2018-08-18 00:59 | NUR ---
Nursing Note Pt is anxious making statements that she can't find her room, doesn't know how to walk or use walker, unsure of who and where she is. Pt is Wringing hands constantly.
[2018-08-18 06:24] VITALS: BP 123/65
[2018-08-18] MEDS: INSULIN LISPRO 300 UNITS/3 ML INSULN.PEN. SQ SCH ×3 (08:25→17:00)
[2018-08-18] MEDS: CARVEDILOL 12.5 MG TABLET PO SCH ×2 (08:25→17:28)
[2018-08-18] MEDS: metFORMIN 500 MG TABLET PO SCH ×2 (08:25→17:26)
[2018-08-18] MEDS: DOCUSATE SODIUM 100 MG CAPSULE PO SCH ×2 (08:26→19:47)
[2018-08-18] MEDS: SERTRALINE 100 MG TABLET. PO SCH (08:26)
[2018-08-18] MEDS: ASPIRIN ENTERIC COATED 81 MG TABLET.DR. PO SCH (08:26)
[2018-08-18] MEDS: FUROSEMIDE 40 MG TABLET PO SCH (08:26)
[2018-08-18] MEDS: POLYETHYLENE GLYCOL 3350 17 GM PACKET. PO SCH (08:26)
[2018-08-18] MEDS: QUEtiapine 25 MG TABLET. PO SCH ×3 (08:26→19:47)
[2018-08-18] MEDS: DONEPEZIL HCL 10 MG TABLET PO SCH (08:26)
[2018-08-18] MEDS: CLOPIDOGREL BISULFATE 75 MG TABLET PO SCH (08:26)
[2018-08-18] MEDS: ATORVASTATIN CALCIUM 20 MG TABLET PO SCH (08:26)
--- NOTE | 2018-08-18 11:43 | NUR ---
Pt is cooperative, and compliant. She can be anxious at times but redirects well. No agitation or aggression, hallucinations or delusions noted. She is compliant with medication and assessment.
--- NOTE | 2018-08-18 15:23 | PN ---
DATE: 08/15/2018 PSYCHIATRIC PROGRESS NOTE This late entry 08/15/2018 covers elements not covered in my initial note. SUBJECTIVE: I met with the patient in the evening. The patient slept 6-3/4 hours previous night. She remains confused, but is doing reasonably well on the unit, irritable with staff. At lunchtime, she told the staff member that she wanted to kill herself. When I questioned her on this, she did not quite seemed to understand what she said or even remember what she said when I met with her in the evening. She is obsessing about some loose skin. REVIEW OF SYSTEMS: No CV, , pulmonary, eye, ENT system symptoms on review. Gait unsteady. MENTAL STATUS EXAM: Oriented to herself. Insight, judgment, recent and remote memory, attention, concentration, fund of knowledge poor, consistent with her diagnosis mentioned in my initial note. PLAN: We will increase Zoloft from 75 mg a day to 100 mg a day after she has been on 75 for 5 days. Rest unchanged for now. MAN Vicky MONTANEZ MD DR: SHAWNA/winsome JOB#: [id number] / [id number]
[2018-08-18 15:36] LABS: BASO % 1 % (0-3); EOS # 0.1 x10^3/uL (0.0-0.7); EOS % 2 % (0-3); HEMOGLOBIN 9.3 g/dL (12.0-15.5); LYMPH # 1.1 x10^3/uL (1.0-4.8); LYMPH % 18 % (24-48); MEAN CORPUSCULAR HEMOGLOBIN 31 pg (25-35); MEAN CORPUSCULAR HGB CONC 33 g/dL (31-37); MEAN CORPUSCULAR VOLUME 95 fL (79-100); MONO # 0.6 x10^3/uL (0.0-1.1); MONO % 9 % (0-9); NEUT # 4.3 x10^3uL (1.8-7.7); NEUT % 69 % (31-73); PLATELET COUNT 269 x10^3/uL (140-400); RED BLOOD COUNT 2.95 x10^6/uL (3.50-5.40); RED CELL DISTRIBUTION WIDTH 13.8 % (11.5-14.5); WHITE BLOOD COUNT 6.2 x10^3/uL (4.0-11.0)
[2018-08-18 15:45] LABS: ALBUMIN/GLOBULIN RATIO 0.9 (1.0-1.7); CALCIUM 8.5 mg/dL (8.5-10.1); CREATININE 1.2 mg/dL (0.6-1.0); GFR 43.4; POTASSIUM 4.6 mmol/L (3.5-5.1); TOTAL BILIRUBIN 0.2 mg/dL (0.2-1.0); TOTAL PROTEIN 6.4 g/dL (6.4-8.2)
[2018-08-18 15:59] VITALS: BP 152/65
--- NOTE | 2018-08-18 17:19 | PN ---
DATE: 08/16/2018 PSYCHIATRIC PROGRESS NOTE This late entry 08/16/2018 covers elements not covered in my initial note. SUBJECTIVE: I met with the patient in the evening. The patient also staffed at a treatment team meeting earlier in the day. The patient slept 6-1/2 hours previous night. Appetite 100%. She remains confused. REVIEW OF SYSTEMS: Ambulation impaired with walker. No CV, , pulmonary, eye system symptoms on review. Reliability poor. MENTAL STATUS EXAM: Oriented to herself. Insight, judgment, recent and remote memory, attention, concentration, fund of knowledge poor, consistent with her diagnosis. One of the other demented patients in the unit to her in the music group and she reacted positively and appropriately. No change from initial note in her psychotropics. JAMES MONTANEZ MD DR: SHAWNA/winsome JOB#: [id number] / [id number]
--- NOTE | 2018-08-18 18:39 | NUR ---
Insulin held d/t pt not eating dinner.
[2018-08-18] MEDS: MIRTAZAPINE 15 MG TABLET PO SCH (19:47)
[2018-08-18] MEDS: INSULIN GLARGINE 300 UNITS/3 ML INSULN.PEN. SQ SCH (19:48)
--- NOTE | 2018-08-18 20:10 | DS ---
DATE OF DISCHARGE: 08/20/2018 FINAL DIAGNOSES: AXIS I: 1. Major neurocognitive disorder, Alzheimer, vascular with delusions, depression, and behavioral disturbances. 2. Anxiety disorder, unspecified. 3. Impulse control disorder, unspecified. AXIS II: None. AXIS III: Type 2 diabetes mellitus, hypertension, status post cerebrovascular accident, and transient ischemic attack. Also history of alcohol dependence and polysubstance abuse in the past and congestive heart failure. REASON FOR ADMISSION: This 78-year-old female who was admitted to [facility] from [facility] where she was hospitalized for evaluation for subacute strokes and also had a recent MRI, which showed ischemic changes in the inferior right parietal and left parietal lobes with advanced dementia. The patient apparently also having hallucinations, paranoid delusions, suicidal ideation, homicidal ideation, and erratic behaviors and also long history of self-inflicted harm, manipulative behaviors and also probable bipolar disorder. HISTORY OF PRESENT ILLNESS: The patient apparently has a history of dementia, Alzheimer, vascular type and in the past treated with bipolar disorder with polysubstance abuse, alcohol abuse, and opioid abuse. The patient apparently has been increasingly agitated, dangerous to herself, depressed, psychotic with sleep and appetite changes. HOSPITAL COURSE: The patient had physical exam, routine lab work including CBC, chem profile, urinalysis. Also, the lab work was within normal range except for fluctuating blood sugar. BUN was 25, creatinine was 1.2. The patient's urinalysis was negative. The patient was involved in treatment including individual therapy, group therapy, activity therapy. The patient was treated with Zoloft 100 mg daily, vitamin D 50,000 units weekly, furosemide 40 mg daily, tramadol 50 mg q. 6 hours p.r.n. She was on lispro. The patient was also on Lipitor 40 mg daily, aspirin 81 mg daily, Plavix 75 mg daily, Aricept 10 mg daily, metformin 500 mg b.i.d., carvedilol 12.5 mg b.i.d., trazodone 12.5 mg t.i.d. p.r.n. She was also on Lantus insulin and Seroquel 25 mg t.i.d., mirtazapine 15 mg at night. The patient did fairly well during her stay here. The patient apparently going home to her daughter. MENTAL STATUS EXAMINATION: The patient is oriented to herself. The patient did not exhibit any major confusion, disorganization of thinking, but she is very nervous, high level of anxiety, and has some difficulty processing information, but no evidence of any confusion. She was oriented to her surroundings. She had some difficulty with short-term memory. PLAN: The patient to be discharged and continue on the medications. Will return home to her daughter and continue with the outpatient treatment. WANDA RUIZ MD DR: KOLE/winsome JOB#: [id number] / [id number]
--- NOTE | 2018-08-18 23:57 | NUR ---
Pt anxious this evening, repeatedly asking when her legs were going to be shaved. Pt appears to be concerned that her legs are swollen. Pt encouraged to sit down with her legs elevated. Compliant with whole medications. When administering insulin, 2 empty butter containers were found hidden in pt's waistband.
[2018-08-19] MEDS ORDERED: CHOL500016 PO (00:38)
[2018-08-19] MEDS ORDERED: DOCU-109 PO (00:39)
[2018-08-19] MEDS ORDERED: OLAN5TAB5 PO (00:40)
[2018-08-19] MEDS ORDERED: SERT100T PO (00:41)
[2018-08-19] MEDS ORDERED: TRAM50TA PO (00:41)
[2018-08-19] MEDS ORDERED: POLY2500 PO (00:41)
[2018-08-19] MEDS ORDERED: INSU100C SQ (00:43)
--- NOTE | 2018-08-19 03:19 | PN ---
DATE: 08/17/2018 PSYCHIATRIC PROGRESS NOTE This is a late entry. SUBJECTIVE: The patient was seen on rounds morning of 08/17/2018. Discussed with nursing staff, reviewed the chart. She slept 6-1/4 hours previous night. The patient remains somewhat paranoid, suspicious that people are coming into her room. The patient has not been aggressive. No suicidal ideation. She remains confused. REVIEW OF SYSTEMS: Ambulation impaired. No CV, , pulmonary, eye system symptoms on review. Reliability poor. MENTAL STATUS EXAM: Oriented to herself. Insight, judgment, recent and remote memory, attention, concentration, fund of knowledge poor, consistent with her diagnosis mentioned in my initial note. PLAN: No change from initial note. MAN Vicky MONTANEZ MD DR: SHAWNA/winsome JOB#: [id number] / [id number]
--- NOTE | 2018-08-19 05:36 | NUR ---
Pt highly anxious this morning. Pt hyperverbal and restless. Pt upset that her clothes are packed up; stating that if she can't have them she "might as well kill myself." Pt shown where her clothes are and that they are packed up so that she can discharge. Pt still very anxious. Pt was brushing her hair and some hair fell out and pt stated "look, my hair is falling out. I might as well kill myself." Pt tearful. Redirection unsuccessful. JUANA Pena administered.
[2018-08-19 05:43] VITALS: BP 136/70
[2018-08-19] MEDS: INSULIN LISPRO 300 UNITS/3 ML INSULN.PEN. SQ SCH ×3 (08:00→16:53)
[2018-08-19] MEDS: metFORMIN 500 MG TABLET PO SCH ×2 (09:40→16:56)
[2018-08-19] MEDS: ATORVASTATIN CALCIUM 20 MG TABLET PO SCH (09:40)
[2018-08-19] MEDS: FUROSEMIDE 40 MG TABLET PO SCH (09:40)
[2018-08-19] MEDS: CARVEDILOL 12.5 MG TABLET PO SCH ×2 (09:40→16:42)
[2018-08-19] MEDS: DONEPEZIL HCL 10 MG TABLET PO SCH (09:40)
[2018-08-19] MEDS: DOCUSATE SODIUM 100 MG CAPSULE PO SCH ×2 (09:40→20:12)
[2018-08-19] MEDS: ASPIRIN ENTERIC COATED 81 MG TABLET.DR. PO SCH (09:40)
[2018-08-19] MEDS: POLYETHYLENE GLYCOL 3350 17 GM PACKET. PO SCH (09:41)
[2018-08-19] MEDS: CLOPIDOGREL BISULFATE 75 MG TABLET PO SCH (09:41)
[2018-08-19] MEDS: SERTRALINE 100 MG TABLET. PO SCH (09:41)
[2018-08-19] MEDS: QUEtiapine 25 MG TABLET. PO SCH ×3 (09:41→20:12)
--- NOTE | 2018-08-19 09:55 | NUR ---
She is compliant with medication and assessment. Pt is cooperative, and compliant. She can be anxious at times but redirects well. No agitation or aggression, hallucinations or delusions noted.
[2018-08-19 16:14] VITALS: BP 130/62
[2018-08-19] MEDS: traMADol 50 MG TABLET PO PRN (16:22)
[2018-08-19] MEDS: MIRTAZAPINE 15 MG TABLET PO SCH (20:12)
[2018-08-19] MEDS: INSULIN GLARGINE 300 UNITS/3 ML INSULN.PEN. SQ SCH (20:14)
--- NOTE | 2018-08-19 20:25 | PN ---
DATE: 08/19/2018 SUBJECTIVE: The patient was seen today, met with the staff, chart reviewed. The patient apparently was planned for discharge today, it was canceled at the request of her daughter. Apparently, she has to go into the hospital. The patient's behavior remains the same. The patient is ready to go home. The patient was upset because she is not able to go home today. Staff is hoping that she will be discharged tomorrow. OBSERVATION: VITAL SIGNS: Temperature 98.2, blood pressure 136/70, pulse 64, respiration 18, O2 sat 98%. Slept about 8 hours last night. The patient's appetite improved. The patient is not having any side effects with the medications. The patient is not expressing any suicidal or homicidal thoughts. The patient has a tendency, tries to isolate herself and denies that she is depressed. The patient's medications reviewed. She is not having any side effects with the medication. ASSESSMENT: 1. Major neurocognitive disorder, Alzheimer's, vascular with delusions, depression, and behavioral disturbances. 2. Anxiety disorder, unspecified. 3. Impulse control disorder, unspecified. PLAN: Plan for discharge tomorrow. The patient will continue on the medication and also follow up with the psychiatrist as an outpatient. WANDA RUIZ MD DR: KOLE/winsome JOB#: [id number] / [id number]
--- NOTE | 2018-08-20 00:18 | NUR ---
Pt anxious this evening. Pt restless and rambling during med pass and assessment. Compliant with whole medications.
[2018-08-20 06:03] VITALS: BP 126/76
[2018-08-20] MEDS: INSULIN LISPRO 300 UNITS/3 ML INSULN.PEN. SQ SCH (08:00)
[2018-08-20 09:48] VITALS: BP 126/76
[2018-08-20] MEDS: POLYETHYLENE GLYCOL 3350 17 GM PACKET. PO SCH (09:48)
[2018-08-20] MEDS: metFORMIN 500 MG TABLET PO SCH (09:48)
[2018-08-20] MEDS: ASPIRIN ENTERIC COATED 81 MG TABLET.DR. PO SCH (09:48)
[2018-08-20] MEDS: FUROSEMIDE 40 MG TABLET PO SCH (09:48)
[2018-08-20] MEDS: CARVEDILOL 12.5 MG TABLET PO SCH (09:48)
[2018-08-20] MEDS: ATORVASTATIN CALCIUM 20 MG TABLET PO SCH (09:48)
[2018-08-20] MEDS: DOCUSATE SODIUM 100 MG CAPSULE PO SCH (09:48)
[2018-08-20] MEDS: DONEPEZIL HCL 10 MG TABLET PO SCH (09:48)
[2018-08-20] MEDS: SERTRALINE 100 MG TABLET. PO SCH (09:49)
[2018-08-20] MEDS: CLOPIDOGREL BISULFATE 75 MG TABLET PO SCH (09:49)
[2018-08-20] MEDS: QUEtiapine 25 MG TABLET. PO SCH (09:49)
[2018-08-20] MEDS: CHOLECALCIFEROL (VITAMIN D3) 50,000 UNIT CAPSULE PO SCH (09:49)
--- NOTE | 2018-08-20 10:00 | NUR ---
Pt is cooperative, calm, compliant. No agitation or aggression. No hallucinations or delusions noted.
--- NOTE | 2018-08-20 11:15 | NUR ---
Transition Record was faxed to follow-up provider with the following elements: Reason for admission, procedures, tests, principal diagnosis, pending studies, patient instructions, 28/11 contact information for unit, phone number to obtain pending test results, plan for follow-up care, physician follow-up, advanced directive information, and medication list with dose, duration and instructions. This information was included in the following documents: History and physical, lab results, study results, progress notes, social work planning form, DC instruction form, patient visit summary, and medication reconciliation form. Date & time record faxed: 08/20/18 [id number] Record faxed to: Dr. Rae Record discussed with/ report given to: DPOA, daughter. Medication called into [facility] pharmacy.
== END 2018-08-20 11:15 | disposition home or self-care (01) | DRG 57 ==
LOC: GEROPSY 18:07
PROVIDERS: ADMIT Psychiatry & Neurology Psychiatry; ATTEND Psychiatry & Neurology Psychiatry
DX: G30.9 Alzheimer's disease, unspecified (principal); F01.51 Vascular dementia, unspecified severity, with behavioral disturbance; F02.81 Dementia in other diseases classified elsewhere, unspecified severity, with behavioral disturbance; F31.60 Bipolar disorder, current episode mixed, unspecified; I13.0 Hypertensive heart and chronic kidney disease with heart failure and stage 1 through stage 4 chronic kidney disease, or unspecified chronic kidney disease; D64.9 Anemia, unspecified; E11.22 Type 2 diabetes mellitus with diabetic chronic kidney disease; F41.9 Anxiety disorder, unspecified; F63.9 Impulse disorder, unspecified; I50.9 Heart failure, unspecified; N18.9 Chronic kidney disease, unspecified; Z66 Do not resuscitate; Z79.02 Long term (current) use of antithrombotics/antiplatelets; Z79.82 Long term (current) use of aspirin; Z79.84 Long term (current) use of oral hypoglycemic drugs; Z79.899 Other long term (current) drug therapy; Z86.73 Personal history of transient ischemic attack (TIA), and cerebral infarction without residual deficits; F10.20 Alcohol dependence, uncomplicated; F11.10 Opioid abuse, uncomplicated; F19.10 Other psychoactive substance abuse, uncomplicated; Z88.0 Allergy status to penicillin
CPT/HCPCS: 36415; 80053; 80061; 81001; 82306; 82947; 83036; 83540; 83550; 84436; 84443; 84480; 85025; 86592; 87086; J1815